=== PATIENT | female | born 1985 | race Two or more races ===

== ENCOUNTER → 2024-07-20 | Outpatient (CLI) | payer BC, SELFPAY ==
[2024-07-20 08:43] LABS: Basophils # (Auto) 0.1 Thou/mm3 (0.0-0.2); Basophils % (Auto) 1 % (0-2.5); Eosinophils # (Auto) 0.2 Thou/mm3 (0.0-0.5); Eosinophils % (Auto) 2 % (0-10); Hematocrit 42.2 % (36.0-46.0); Hemoglobin 14.1 g/dL (12.0-16.0); Immature Granulocytes % (Auto) 0 % (0-0); Immature Granulocytes Auto 0.03 Thou/mm3 (0.00-0.00); Lymphocytes # (Auto) 1.9 Thou/mm3 (1.0-4.8); Lymphocytes % (Auto) 27 % (10-50); Mean Corpuscular HGB Conc 33.4 g/dl (31.0-37.0); Mean Corpuscular Hemoglobin 29.4 pg (25.0-35.0); Mean Corpuscular Volume 88 fL (80-100); Monocytes # (Auto) 0.4 Thou/mm3 (0.0-0.8); Monocytes % (Auto) 6 % (0-12); Neutrophils # (Auto) 4.6 Thou/mm3 (1.8-7.7); Neutrophils % (Auto) 64 % (37-80); Nucleated Red Blood Cell % 0 /100 WBC (0); Platelet Count 408 Thou/mm3 (140-440); RDW Standard Deviation 40.5 fL (36.4-46.3); White Blood Count 7.2 Thou/mm3 (3.6-11.0)
[2024-07-20 08:53] LABS: Collection Type, Urine Clean Catch
[2024-07-20 09:01] LABS: Glucose Estimated Average 103 mg/dL (80-131); Hemoglobin A1C 5.2 % Hgb (4.8-6.0)
[2024-07-20 09:15] LABS: Vitamin B12 553 pg/mL (211-911); Vitamin D 25 Hydroxy Total 31.2 ng/mL (7.3-40.2)
[2024-07-20 09:20] LABS: Bilirubin,Urine Negative (Negative); Blood,Urine Trace (Negative); Clarity,Urine Clear (Clear/Hazy); Color,Urine Lt-Yellow (Lt Yel-Yel); Glucose, Urine Negative (Negative); Ketones,Urine Negative (Negative); Leukocyte Esterase,Urine Negative (Negative); Nitrite,Urine Negative (Negative); Protein,Urine Negative (Neg - Trace); RBC,Urine 3 /hpf (0-3); Specific Gravity,Urine 1.022 (1.001-1.035); Squamous Epithelial Cell,Urine 1 /hpf (0-5); Urobilinogen,Urine Negative mg/dL (0.0-1.0); WBC,Urine < 1 /hpf (0-5)
[2024-07-20 09:33] LABS: Alanine Aminotransferase 22 U/L (10-49); Albumin, Serum 4.6 gm/dL (3.5-5.0); Albumin/Globulin Ratio 1.5 (1.2-2.2); Alkaline Phosphatase 67 U/L (46-116); Anion Gap 7 (7-16); Aspartate Amino Transferase 15 U/L (0-34); BUN/Creatinine Ratio 14 Ratio (12-20); Bilirubin,Total 0.5 mg/dL (0.3-1.2); Blood Urea Nitrogen 10 mg/dL (9-23); Calcium 9.9 mg/dL (8.3-10.6); Calcium (Corrected) 9.9 mg/dL (8.5-10.1); Carbon Dioxide 27.4 mMol/L (20.0-31.0); Chloride 104 mMol/L (98-107); Cholesterol 228 mg/dL (132-200); Creatinine (Component) 0.7 mg/dL (0.6-1.3); Glucose 113 mg/dL (74-106); HDL Cholesterol 46 mg/dL (40-60); LDL Cholesterol,Calculated 161 mg/dL (0-130); Osmolality,Calculated 275 (275-295); Sodium 138 mMol/L (136-145); Thyroid Stimulating Hormone 1.01 uIU/mL (0.55-4.78); Total Protein 7.6 gm/dL (5.7-8.2); Triglycerides 107 mg/dL (30-150); Uric Acid 7.4 mg/dL (3.1-7.8); eGFR > 60 See Note
== END | disposition home or self-care (01) ==
LOC: COPL 07:43
PROVIDERS: PCP Internal Medicine; Referring Provider Internal Medicine; Visit Provider Internal Medicine
DX: Z00.00 Encounter for general adult medical examination without abnormal findings (principal); I10 Essential (primary) hypertension
CPT/HCPCS: 36415; 80053; 80061; 81001; 82306; 82607; 83036; 84443; 84550; 85025

== ENCOUNTER 2024-07-28 08:54 | Emergency (ER) | payer BC, SELFPAY ==
[2024-07-28 09:04] VITALS: BP 142/89; PULSE 84; RESP 18; TEMP 36.7; O2SAT 97; BMI 37.9
--- NOTE | 2024-07-28 09:05 | XR_ITS ---
Examination: Cervical spine 4 views Technique: AP, lateral, swimmer's lateral, AP odontoid 4 views Exam date and time: July 28, 2024 0923 hrs. Indications: Upper back and cervical spine pain 4 days Findings: Adequate alignment cervical vertebral bodies No cervical fracture Intact odontoid Impression: No cervical fracture or significant cervical disc narrowing If neck pain persists, consider MRI cervical spine without contrast follow-up
--- NOTE | 2024-07-28 09:05 | XR_ITS ---
Examination: Thoracic spine 3 views Technique one AP lateral coned lateral upper dorsal spine 3 views Exam date and time: July 28, 2024 0931 hrs. Indications: Upper and mid back pain beginning 4 days ago. Findings: Normal bone density. Satisfactory alignment thoracic vertebral bodies No thoracic fracture No thoracic disc narrowing Impression: No thoracic fracture or thoracic disc narrowing If back pain persists, consider MRI thoracic spine without contrast follow-up
[2024-07-28] MEDS: DIAZEPAM 5 MG TABLET PO (09:13)
[2024-07-28] MEDS: KETOROLAC INJ 30 MG/ML VIAL IM (09:14)
--- NOTE | 2024-07-28 09:59 | PD.EDADULT ---
ED General RME/HPI General Chief complaint: General Adult/Misc Complain Stated complaint: center shoulder blade pain-neck/face x4 days Time Seen by Provider: 07/28/24 08:57 Arrival date/time: 07/28/24 08:54 39-year-old female presents emergency department complaints of upper back pain and neck pain and suprascapular pain patient reports pain is worse with movement of her neck. Patient reports no fever nausea or vomiting no dizziness or weakness Limitations: no limitations Related Data Home Medications ?Medication ?Instructions ?Recorded ?Confirmed atenolol 50 mg tablet 50 mg PO QDAY 06/25/22 06/25/22 Previous Rx's ?Medication ?Instructions ?Recorded pantoprazole 40 mg tablet,delayed 40 mg PO QDAY #30 tabs 09/08/20 release (Protonix) cyclobenzaprine 10 mg tablet 10 mg PO TID PRN muscle spasm 10 07/28/24 days #30 tab-caps hydrocodone 5 mg-acetaminophen 325 1 tab PO BID PRN pain #6 tabs 07/28/24 mg tablet ibuprofen 800 mg tablet 800 mg PO TID PRN pain #30 tabs 07/28/24 Allergies Allergy/AdvReac Type Severity Reaction Status Date / Time cephalexin Allergy Severe Hives Verified 06/25/22 11:23 sumatriptan Allergy Severe PALPITATIONS, Verified 06/25/22 11:23 CXP, AND SWEATY nitrofurantoin Allergy Intermediate RASH Verified 06/25/22 11:23 HAPPENS DAYS AFTER NOT IMMEDIATELY latex Allergy Mild RASH Verified 06/25/22 11:23 Review of Systems Review of Systems Systems Reviewed: All systems reviewed, normal except as documented Constitutional Constitutional: Reports system reviewed and no additional complaints, except as documented, Denies fever(s) and Denies headache(s) Eyes Eyes: Reports system reviewed and no additional complaints, except as documented and Denies blurry vision ENT Ears, Nose, Mouth, and Throat: Reports system reviewed and no additional complaints, except as documented, Denies headache(s), Denies nasal congestion, Denies nasal discharge and Reports neck pain Cardiovascular Cardiovascular: Reports system reviewed and no additional complaints, except as documented, Denies chest pain and Denies dyspnea Respiratory Respiratory: Reports system reviewed and no additional complaints, except as documented, Denies chest congestion, Denies cough and Denies dyspnea Gastrointestinal Gastrointestinal: Reports system reviewed and no additional complaints, except as documented and Denies abdominal pain Musculoskeletal Musculoskeletal: Reports system reviewed and no additional complaints, except as documented, Denies deformity, Reports neck pain, Denies numbness, Reports stiffness and Denies tingling Integumentary/Breasts Skin/Breast: Reports system reviewed and no additional complaints, except as documented and Denies rash Neurologic Neurologic: Reports system reviewed and no additional complaints, except as documented, Reports as per HPI, Denies headache(s), Denies numbness and Denies tingling Past Medical History Past Medical History NEUROLOGIC: Positive Neurological Disorders and Migraine; Negative Seizures CARDIAC: Positive Cardiac Disorders, Cardiac Arrhythmia and Angina; Negative Congestive Heart Failure RESPIRATORY: Positive Bronchitis; Negative Chronic Obstructive Pulmonary Disease (COPD) or Asthma GASTROINTESTINAL: Positive Gastrointestinal Disorders, Gastroesophageal Reflux Disease and Obesity GENITOURINARY: Negative Genitourinary Disorders or Renal Disease REPRODUCTIVE: Positive Previous Pregnancies MUSCULOSKELETAL: Negative Musculoskeletal Disorders ENDOCRINE: Negative Endocrine Disorders, Diabetes Mellitus Type 1 or Diabetes Mellitus Type 2 HEMATOLOGIC: Negative Blood Disorders or Sickle Cell Disease OTHER HISTORY: Negative Hospitalization, Autoimmune Disease, Falls, Blood Transfusions, Anesthesia Reactions or Cancer Family History FAMILY HISTORY: Positive Family Cardiac Disorders; Negative Family Anesthesia Reaction Surgical History SURGICAL: Positive Tubal Ligation and Section Social History SMOKING STATUS: Never smoker SUBSTANCE USE: does not use ED Exam General Limitations: Present no limitations General appearance: Present alert and in no apparent distress Head Head exam: Present atraumatic, normocephalic and normal inspection Eye Eye exam: Present normal appearance, PERRL and EOMI; Absent conjunctival injection ENT ENT exam: Present normal exam, normal oropharynx and mucous membranes moist Neck Neck exam: Present normal inspection, full ROM and trachea midline Chest Chest inspection: Present normal inspection and symmetric chest wall rise Respiratory Respiratory exam: Present normal lung sounds bilaterally; Absent respiratory distress Cardiovascular Cardiovascular exam: Present regular rate, normal rhythm and normal heart sounds Abdominal Exam Abdominal exam: Present soft and normal bowel sounds Extremities Exam Extremities exam: Present normal inspection and full ROM Back Exam Back exam: Present normal inspection, full ROM, tenderness, muscle spasm and paraspinal tenderness Neurological Exam Neurological exam: Present alert, oriented X3, CN II-XII intact, normal gait and reflexes normal; Absent motor sensory deficit Psychiatric Psychiatric exam: Present normal affect and normal mood Skin Skin exam: Present warm, dry, intact and normal color Course Quality Measures none Orders Category Date Time Status XR cervical spine 2-3V Stat Exams 07/28/24 09:05 Completed XR thoracic spine 3V Stat Exams 07/28/24 09:05 Completed Diazepam [Valium] Med 07/28/24 09:05 Discontinued 5 mg PO X1 ONE Ketorolac Inj [Toradol Inj] Med 07/28/24 09:05 Discontinued 30 mg IM X1 ONE Vital Signs Vital signs: Vital Signs Temperature 98.1 F 07/28/24 09:04 Pulse Rate 84 07/28/24 09:04 Respiratory Rate 18 07/28/24 09:04 Blood Pressure 142/89 H 07/28/24 09:04 Pulse Oximetry (%) 97 07/28/24 09:04 Oxygen Delivery Method Room Air 07/28/24 09:04 O2 saturation 97% room air within normal limit [facility] Patient data External records reviewed:: [facility] previous records Clinical information provided by:: patient Social determinants that could affect healthcare access:: none Patient has the following chronic illnesses:: None How is presenting disease/condition affected by chronic disease/condition?: no chronic disease Evaluation data The following diagnostics were reviewed and interpreted by me:: radiology exam(s) Lab and/or radiology exams considered but not ordered:: Radiology obtained Interpretation Summary: Reviewed by me Medications Medications considered but not ordered:: Given Medication administrations:: Medication Administration History Discontinued Medications Diazepam (Diazepam 5 Mg Tablet) 5 mg PO X1 ONE Stop: 07/28/24 09:06 Last Admin: 07/28/24 09:13 Dose: 5 mg Documented By: AM Ketorolac Tromethamine (Ketorolac Inj 30 Mg/Ml Vial) 30 mg IM X1 ONE Stop: 07/28/24 09:06 Last Admin: 07/28/24 09:14 Dose: 30 mg Documented By: AM Given Consultations Consultation(s) initiated? (list below): No Diagnosis Differential Diagnosis ED Complaint MDM: Muscle spasm, muscle strain Most likely diagnosis given after review of the tests above:: Muscle strain Admission Indicated Admission indicated?: not indicated Explain why admission is indicated or not indicated:: No criteria Admission Request Was there a request for admission?: No Disposition Plan Disposition Plan: Discharge Discharge Attestation Discharge Attestation: The patient and all family members were given an opportunity to ask questions and understood the discharge instructions. Discharge instructions specifically effects, indications for sooner follow up or return to the emergency department, and the expected course of current diagnosis. Patient condition: Stable Medical Decision Making MDM Narrative MDM Narrative: 39-year-old female presents emergency department complaints of upper back pain and neck pain and suprascapular pain patient reports pain is worse with movement of her neck. Patient reports no fever nausea or vomiting no dizziness or weakness Clinically patient has muscle spasm/mostly muscle strain X-rays of the cervical spine and thoracic spine obtained no acute emergent findings noted Patient given pain medication Patient discharged home in no distress to follow-up with primary care doctor in the next 24 to 48 hours and for any worsening symptoms to return to the ER immediately Differential Diagnosis Differential Diagnosis: Muscle spasm, muscle strain Medical Records Medical records reviewed: Yes I reviewed the patient's medical records. Radiology Data Radiology results reviewed: Yes I reviewed the patient's radiology results. Discharge Plan Plan Patient Disposition: HOME (Self Care) Disposition Comment: Stable Prescriptions/Referrals Prescriptions/Med Rec: New cyclobenzaprine 10 mg tablet 10 mg PO TID PRN (Reason: muscle spasm) 10 Days Qty: 30 0RF ibuprofen 800 mg tablet 800 mg PO TID PRN (Reason: pain) Qty: 30 0RF hydrocodone-acetaminophen 5-325 mg tablet 1 tab PO BID MDD 10 PRN (Reason: pain) Qty: 6 0RF No Action pantoprazole [Protonix] 40 mg tablet,delayed release (DR/EC) 40 mg PO QDAY Qty: 30 0RF atenolol 50 mg tablet 50 mg PO QDAY Patient Comments: TAKE 1 TABLET BY MOUTH TWICE A DAY Referrals: Mariana To MD [Primary Care Provider] - 07/30/24 Problem List Clinical Impression: Pain, upper back, Muscle spasm Patient/Caregiver Discharge Instructions Education Materials: Back Safety: Bending Additional Instructions: Please follow up with your primary care doctor in the next 24-48hrs for any worsening symptoms return here immediately Print Language: Danish Stand Alone Forms: Rissa Award Info., Work/School Release, Patient Portal Info Letter Attestation Attestation The patient was seen by the midlevel practitioner. I, the co-signing physician, was present during the entire ER visit. While I did not physically examine the patient, I was available for consultation as needed.
== END 2024-07-28 10:18 | disposition home or self-care (01) ==
PROVIDERS: Emergency Provider Emergency Medicine; PCP Internal Medicine
DX: M54.6 Pain in thoracic spine (principal); M62.838 Other muscle spasm
CPT/HCPCS: 72040; 72050; 72072; 96372; 99283; J1885; A9270

== ENCOUNTER → 2024-09-27 | Outpatient (CLI) | payer BC, SELFPAY ==
--- NOTE | 2024-09-27 11:14 | XR_ITS ---
Examination: Breast ultrasound, unilateral, left complete Date and time of exam: September 27, 2024 1121 hours INDICATIONS: History left breast biopsy 12:00 nodule 06/07/2023, negative, the nodule measures 17 x 7 x 8 mm Technique: Real-time horton scale ultrasonographic imaging performed left breast including all 4 quadrants as well as nipple retroareolar and axillary region. Findings: 3:00 hyperechoic oval mass 6 x 6 mm 9:00 hyperechoic circumscribed mass 5 x 5 mm 11:00 oval mass with breast biopsy marker 17 x 8 x 9 mm IMPRESSION: BI-RADS Category 2: Benign findings
== END | disposition home or self-care (01) ==
LOC: CDIM 10:50
PROVIDERS: PCP Internal Medicine; Referring Provider Internal Medicine; Visit Provider Internal Medicine
DX: N63.25 Unspecified lump in the left breast, overlapping quadrants (principal); N63.12 Unspecified lump in the right breast, upper inner quadrant
CPT/HCPCS: 76641

== ENCOUNTER 2024-10-02 15:17 | Inpatient (IN) | payer BC, SELFPAY ==
--- NOTE | 2024-10-02 15:21 | EKG_ITS ---
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
--- NOTE | 2024-10-02 15:27 | PD.EDRME ---
Rapid Medical Screening Exam RME Arrival date/time: 10/02/24 15:17 39-year-old female presents to the emergency department today with complaint of chest pressure and pain patient reports a recent nuclear stress test which showed she had a blockage patient reports that she is supposed to have an angiogram this Chief Complaint: Chest Pain
[2024-10-02 15:29] VITALS: BP 134/75; PULSE 77; RESP 17; TEMP 37.3; O2SAT 97; BMI 40.4
--- NOTE | 2024-10-02 15:32 | XR_ITS ---
Examination: PA lateral chest 2 views TECHNIQUE: Upright PA lateral chest 2 views Exam date and time: October 02, 2024 1548 hours Comparison August 10, 2021 INDICATIONS: Chest pain chest tightness today FINDINGS: Normal heart size Lungs are clear. The osseous structures are intact IMPRESSION: No active disease
[2024-10-02 15:58] LABS: Basophils # (Auto) 0.1 Thou/mm3 (0.0-0.2); Basophils % (Auto) 1 % (0-2.5); Eosinophils # (Auto) 0.1 Thou/mm3 (0.0-0.5); Eosinophils % (Auto) 1 % (0-10); Hematocrit 38.5 % (36.0-46.0); Hemoglobin 13.2 g/dL (12.0-16.0); Immature Granulocytes % (Auto) 0 % (0-0); Immature Granulocytes Auto 0.03 Thou/mm3 (0.00-0.00); Lymphocytes # (Auto) 2.8 Thou/mm3 (1.0-4.8); Lymphocytes % (Auto) 25 % (10-50); Mean Corpuscular HGB Conc 34.3 g/dl (31.0-37.0); Mean Corpuscular Hemoglobin 29.1 pg (25.0-35.0); Mean Corpuscular Volume 85 fL (80-100); Monocytes # (Auto) 0.7 Thou/mm3 (0.0-0.8); Monocytes % (Auto) 6 % (0-12); Neutrophils # (Auto) 7.3 Thou/mm3 (1.8-7.7); Neutrophils % (Auto) 67 % (37-80); Nucleated Red Blood Cell % 0 /100 WBC (0); Platelet Count 367 Thou/mm3 (140-440); RDW Standard Deviation 38.1 fL (36.4-46.3); Red Blood Count 4.53 Miln/mm3 (4.00-5.20)
[2024-10-02 16:26] LABS: B-Type Natriuretic Peptide 36 pg/mL (0-100)
[2024-10-02 16:31] LABS: Alanine Aminotransferase 17 U/L (10-49); Albumin, Serum 4.5 gm/dL (3.5-5.0); Albumin/Globulin Ratio 1.4 (1.2-2.2); Alkaline Phosphatase 63 U/L (46-116); Anion Gap 8 (7-16); Aspartate Amino Transferase 12 U/L (0-34); BUN/Creatinine Ratio 14 Ratio (12-20); Bilirubin,Total 0.5 mg/dL (0.3-1.2); Blood Urea Nitrogen 10 mg/dL (9-23); Calcium 9.8 mg/dL (8.3-10.6); Calcium (Corrected) 9.8 mg/dL (8.5-10.1); Carbon Dioxide 27.5 mMol/L (20.0-31.0); Chloride 104 mMol/L (98-107); Creatinine (Component) 0.7 mg/dL (0.6-1.3); Globulin 3.3 gm/dL (2.3-3.5); Glucose 96 mg/dL (74-106); Osmolality,Calculated 276 (275-295); Potassium 3.9 mMol/L (3.4-5.1); Sodium 139 mMol/L (136-145); Total Protein 7.8 gm/dL (5.7-8.2); Troponin I < 0.002 ng/mL (0.0-0.045); eGFR > 60 See Note
--- NOTE | 2024-10-02 19:42 | PD.EDCHEST ---
ED Chest Pain RME/HPI General Chief Complaint: Chest Pain Stated Complaint: CHEST PAIN SINCE YESTRDAY, HAS BLOCKAGE Time Seen by Provider: 10/02/24 18:30 Arrival date/time: 10/02/24 15:17 Limitations: no limitations RME / HPI RME / HPI narrative: 10/02/24 15:17 39-year-old female presents to the emergency department today with complaint of chest pressure and pain patient reports a recent nuclear stress test which showed she had a blockage patient reports that she is supposed to have an angiogram this DR. HORAN MAIN ED EVALUATION: 39 year old female presents to the Emergency Department with complaint of chest pain that began yesterday when she woke up at 8 AM. She states the pain is constant and has not gone away. Pain is described as aching and rated moderate in severity. PMHx: Migraine, hypercholesterolemia, GERD. Tubal Ligation and a section. Social Hx: No tobacco, alcohol, or substance use. Related Data Home Medications ?Medication ?Instructions ?Recorded ?Confirmed atenolol 50 mg tablet 50 mg PO QDAY 06/25/22 06/25/22 Previous Rx's ?Medication ?Instructions ?Recorded pantoprazole 40 mg tablet,delayed 40 mg PO QDAY #30 tabs 09/08/20 release (Protonix) hydrocodone 5 mg-acetaminophen 325 1 tab PO BID PRN pain #6 tabs 07/28/24 mg tablet ibuprofen 800 mg tablet 800 mg PO TID PRN pain #30 tabs 07/28/24 Allergies Allergy/AdvReac Type Severity Reaction Status Date / Time cephalexin Allergy Severe Hives Verified 06/25/22 11:23 latex Allergy Severe RASH Verified 10/02/24 15:20 nitrofurantoin Allergy Severe RASH Verified 10/02/24 15:20 HAPPENS DAYS AFTER NOT IMMEDIATELY sumatriptan Allergy Severe PALPITATIONS, Verified 06/25/22 11:23 CXP, AND SWEATY Review of Systems Review of Systems Systems Reviewed: All systems reviewed, normal except as documented Narrative Review of Systems: GEN: No fever, no chills, no weight loss EYES: No discharge, no visual changes, no pain HEENT: No ear pain, no congestion, no sore throat PULM: No shortness of breath, no cough, no congestion CV: + chest pain, no dyspnea on exertion, no palpitations GI: No nausea, no vomiting, no diarrhea, no pain, no constipation : No frequency, no urgency and no dysuria MUSC/SKEL: No joint pain, no back pain SKIN: No rash PSYCH: No hallucinations, no depression HEME/LYMPH: No easy bleeding or bruising tendencies NEURO: No weakness, no headache Past Medical History Past Medical History NEUROLOGIC: Positive Neurological Disorders and Migraine CARDIAC: Positive Cardiac Arrhythmia and Hypercholesterolemia RESPIRATORY: Positive Bronchitis GASTROINTESTINAL: Positive Gastrointestinal Disorders and Gastroesophageal Reflux Disease REPRODUCTIVE: Positive Previous Pregnancies Family History FAMILY HISTORY: Positive Family Cardiac Disorders (Brother NM) Surgical History SURGICAL: Positive Tubal Ligation and Section Social History SMOKING STATUS: Never smoker SUBSTANCE USE: does not use ED Exam General Limitations: Present no limitations General appearance: Present alert and in no apparent distress Head Head exam: Present atraumatic, normocephalic and normal inspection Eye Eye exam: Present normal appearance, PERRL and EOMI ENT ENT exam: Present normal exam, normal oropharynx and mucous membranes moist Neck Neck exam: Present normal inspection, full ROM and trachea midline Chest Chest inspection: Present normal inspection and symmetric chest wall rise Respiratory Respiratory exam: Present normal lung sounds bilaterally Cardiovascular Cardiovascular exam: Present regular rate, normal rhythm and normal heart sounds Abdominal Exam Abdominal exam: Present soft and normal bowel sounds Extremities Exam Extremities exam: Present normal inspection and full ROM Back Exam Back exam: Present normal inspection and full ROM Neurological Exam Neurological exam: Present alert, oriented X3 and CN II-XII intact Psychiatric Psychiatric exam: Present normal affect and normal mood Skin Skin exam: Present warm, dry, intact and normal color Course Quality Measures none Orders Category Date Time Status EKG (ED ONLY) *Do not use* NOW Care 10/02/24 15:21 Completed EKG (ED Only) Stat Exams 10/02/24 15:21 Draft XR chest 2V Stat Exams 10/02/24 15:32 Completed BNP [B-Type Natriuretic Peptide] Stat Lab 10/02/24 15:44 Completed CBC Stat Lab 10/02/24 15:44 Completed Comprehensive Metabolic Panel Stat Lab 10/02/24 15:44 Completed D-Dimer Stat Lab 10/02/24 20:55 Received Troponin I Stat Lab 10/02/24 15:44 Completed Troponin I Stat Lab 10/02/24 20:55 Completed Aspirin Med 10/02/24 19:44 Discontinued 325 mg PO X1 ONE Nitroglycerin Oint 2% [Nitro-paste Oint 2%] Med 10/02/24 19:46 Discontinued 1 inch TOP X1 ONE Vital Signs Vital signs: Vital Signs Temperature 99.2 F 10/02/24 15:29 Pulse Rate 77 10/02/24 15:29 Respiratory Rate 17 10/02/24 15:29 Blood Pressure 134/75 H 10/02/24 15:29 Pulse Oximetry (%) 97 10/02/24 15:29 Oxygen Delivery Method Room Air 10/02/24 15:29 Procedures -ED EKG Interpretation #1: Date of EK10/02/24 Time of EK:28 Rate: 73 Interpretation: Interpreted by me Additional EKG comment: sinus rhythm, rate 73, QTc 382, T wave inversion in V3 which is new from 2020 Chest Pain MDM Narrative MDM Narrative:: I, Roxy Velarde am scribing for and in the presence of Dr. Horan. Patient data External records reviewed:: [facility] previous records (Reviewed last ED visit dated 07/28/24, discharged with the following: Muscle spasm.) Clinical information provided by:: patient Social determinants that could affect healthcare access:: none Patient has the following chronic illnesses:: Migraine, hypercholesterolemia, GERD. Tubal Ligation and a section. How is presenting disease/condition affected by chronic disease/condition?: exacerbated by Evaluation data The following diagnostics were reviewed and interpreted by me:: lab results, radiology exam(s) and EKG tracing(s) Lab and/or radiology exams considered but not ordered:: none Interpretation Summary: Exam: 2 views chest xray Indication: chest pain My interpretation: Lungs clear, no consolidation, normal cardiac silhouette, soft tissue normal Overall impression: no acute process. Full report below. RADIOLOGY Procedure(s): XR chest 2V Accession Number(s): [id number] cc: Lucille (RONA),Ayaan REA; Luis Kaiser MD~ Examination: PA lateral chest 2 views TECHNIQUE: Upright PA lateral chest 2 views Exam date and time: October 02, 2024 1548 hours Comparison August 10, 2021 INDICATIONS: Chest pain chest tightness today FINDINGS: Normal heart size Lungs are clear. The osseous structures are intact IMPRESSION: No active disease Dictated By: Luis Kaiser MD Medications / Prescriptions Medications or Prescriptions considered but not ordered:: none Medication administrations:: Medication Administration History Discontinued Medications Aspirin (Aspirin 325 Mg Tablet) 325 mg PO X1 ONE Stop: 10/02/24 19:45 Last Admin: 10/02/24 20:49 Dose: 325 mg Documented By: TC Nitroglycerin (Nitroglycerin Oint 2% 1 Inch Packet) 1 inch TOP X1 ONE Stop: 10/02/24 19:47 Last Admin: 10/02/24 20:48 Dose: 1 inch Documented By: TC see above Consultations Consultation(s) initiated? (list below): Yes Consultation #1 (Physician, Specialty, Details): Discussed test HPI, PMHx, lab, radiology results and/or management with hospitalist Dr. Goel. Will admit for further evaluation and management. Accepts patient for admission. Time: 21:30 Diagnosis Chest Pain Differential Diagnosis: atypical chest pain, st elevation myocardial infarction, costochondritis, chest pain and biliary colic Most likely diagnosis given after review of the tests above:: As noted below. Admission Indicated Admission indicated?: indicated Admission Request Was there a request for admission?: Yes Admission Attestation Admission request attestation: Discussed case with [] from Hospitalist service regarding admission. Discussed patients ED course, exam findings, labs, and radiology results. The Hospitalist [agrees,declines] to accept the patient for admission. Disposition Plan Disposition Plan: Admit Discharge Plan Plan Patient Disposition: HOME (Self Care) Patient condition on transfer: Stable Prescriptions/Referrals Prescriptions/Med Rec: No Action pantoprazole [Protonix] 40 mg tablet,delayed release (DR/EC) 40 mg PO QDAY Qty: 30 0RF atenolol 50 mg tablet 50 mg PO QDAY Patient Comments: TAKE 1 TABLET BY MOUTH TWICE A DAY ibuprofen 800 mg tablet 800 mg PO TID PRN (Reason: pain) Qty: 30 0RF hydrocodone-acetaminophen 5-325 mg tablet 1 tab PO BID MDD 10 PRN (Reason: pain) Qty: 6 0RF Referrals: Mariana To MD [Primary Care Provider] - In 1 week Problem List Clinical Impression: Chest pain, Unstable angina Patient/Caregiver Discharge Instructions Print Language: Tajik Stand Alone Forms: Rissa Award Info., Patient Portal Info Letter
[2024-10-02 20:48] VITALS: BP 171/106; PULSE 73
[2024-10-02] MEDS: NITROGLYCERIN OINT 2% 1 INCH PACKET TOP (20:48)
[2024-10-02] MEDS: Aspirin 325 MG TABLET PO (20:49)
[2024-10-02 20:51] VITALS: BP 171/106; PULSE 74; RESP 15; O2SAT 99
[2024-10-02 21:22] LABS: Troponin I < 0.002 ng/mL (0.0-0.045)
[2024-10-02 21:33] LABS: D-Dimer < 250 ng/mL (<600)
[2024-10-02 22:28] LABS: Basophils # (Auto) 0.1 Thou/mm3 (0.0-0.2); Basophils % (Auto) 0 % (0-2.5); Eosinophils # (Auto) 0.1 Thou/mm3 (0.0-0.5); Eosinophils % (Auto) 1 % (0-10); Hematocrit 39.4 % (36.0-46.0); Hemoglobin 13.7 g/dL (12.0-16.0); Immature Granulocytes % (Auto) 0 % (0-0); Immature Granulocytes Auto 0.04 Thou/mm3 (0.00-0.00); Lymphocytes # (Auto) 3.5 Thou/mm3 (1.0-4.8); Lymphocytes % (Auto) 25 % (10-50); Mean Corpuscular HGB Conc 34.8 g/dl (31.0-37.0); Mean Corpuscular Hemoglobin 29.5 pg (25.0-35.0); Mean Corpuscular Volume 85 fL (80-100); Monocytes # (Auto) 0.7 Thou/mm3 (0.0-0.8); Monocytes % (Auto) 5 % (0-12); Neutrophils # (Auto) 9.4 Thou/mm3 (1.8-7.7); Neutrophils % (Auto) 68 % (37-80); Nucleated Red Blood Cell % 0 /100 WBC (0); Platelet Count 390 Thou/mm3 (140-440); RDW Standard Deviation 38.1 fL (36.4-46.3); Red Blood Count 4.65 Miln/mm3 (4.00-5.20); White Blood Count 13.8 Thou/mm3 (3.6-11.0)
[2024-10-02 22:36] LABS: INR 1.1 (0.9-1.3); Partial Thromboplastin Time 30.4 Seconds (22.0-36.0); Prothrombin Time 11.9 Seconds (9.0-12.2)
[2024-10-02 23:05] VITALS: BP 126/76; PULSE 70; RESP 15; O2SAT 97
[2024-10-03] VITALS (12 sets, daily range): BP systolic 99–122; BP diastolic 58–67; PULSE 18–91; RESP 13–99; TEMP 36.3–37.1; O2SAT 87–98; BMI 39.8
[2024-10-03] MEDS: HEPARIN SOD INJ 5000 UNIT/ML VIAL 2900 UNIT IV (01:50)
[2024-10-03] MEDS: Heparin/D5w 25K 250 ML Ivpb 25,000 UNIT/250 ML BAG 9.998 UNIT IV (01:53)
[2024-10-03 07:38] LABS: Troponin I < 0.002 ng/mL (0.0-0.045)
[2024-10-03] MEDS: Lisinopril 2.5 MG TABLET 10 MG PO (08:24)
[2024-10-03] MEDS: METOPROLOL SUCCINATE XL 25 MG TABCR 50 MG PO (08:24)
--- NOTE | 2024-10-03 08:37 | EKG_ITS ---
[facility] Test Date: 2024-10-03 Pat Name: KELSI ROGERS [facility] Healthcare Insurance Sales Agent: JOSE LUIS : 1985 Requested By: Serafin Leonard Order Number: [id number] Reading MD: Serafin Leonard Measurements Intervals [place] Rate: 81 P: 48 [place]: 175 QRS: 31 QRSD: 101 T: 34 QT: 364 QTc: 425 Interpretive Statements SINUS RHYTHM Compared to ECG 10/02/2024 15:28:45 No significant changes /store/S0/[id number]
--- NOTE | 2024-10-03 08:45 | PD.RESHP ---
Documentation for date of: 10/03/24 HPI History of Present Illness Chief complaint: Chest pain History of present illness: HPI: 39-year-old female patient with past medical history of hypertension, hyperlipidemia, questionable coronary artery disease, presented to the ED due to chest pain that started 12 hours before presentation. Patient reported that the pain was 9 out of 10 on presentation it was centrally located and radiated to the left shoulder. She mentions that the pain is pressure-like pain it has no relation to activity however she will notice that it increased with stress. She also reported yesterday she noticed whenever she take a deep breath the pain become worse. She mentions also that she started to have episodes of palpitation and during these palpitations when she was feeling sharp pain that last for few seconds and goes away. Patient denied any history of loss of consciousness, or presyncope. Denied any lower extremity swelling or orthopnea or paroxysmal nocturnal dyspnea. Patient reported that she had been having recurrent episodes of chest pain for the past 3 years. Reported that she has been following up with Dr. Aldrich since then. In April 2024 nuclear study test was done and it was negative for any blockage however in August 2024 another stress study was done and it showed that the patient has a blockage. Patient was started on aspirin [address] Aldrich and scheduled for angiogram on , 04 October 2024 however patient could not tolerate the pain for that reason patient presented to the ED specially because she said that she has family history of massive heart attack in her brother at the age of 48 that led to his . Home medications: Atenolol, atorvastatin, aspirin ED course: On presentation patient was vitally stable, EKG was negative for any ischemic changes, troponin was negative, BNP negative chest x-ray was also negative for any mediastinal dilatation or pleural effusion. Hemoglobin is 13.7, WBC 10, basal metabolic panel within normal limits. PMH: Hypertension, hyperlipidemia, coronary artery disease PSX: , tubal ligation PFX: Massive heart attack and brother at the age of 48 socially Social hx: Alcohol: Socially Tobacco: Denied Illicit drugs: Denied Allergies: Sumatriptan, cephalexin, latex, nitrofurantoin Review of Systems Review of Systems Narrative Review of Systems: CONSTITUTIONAL: Patient denies any fever, chills. HEENT: Denies any visual disturbances or hearing problems. CARDIOVASCULAR: Patient complaining of chest pain, shortness of breath-better this morning. No swelling in the lower extremities. PULMONARY: Shortness of breath better this morning GASTROINTESTINAL: Patient denies any abdominal pain, constipation, nausea, vomiting, diarrhea. GENITOURINARY: Patient denies any urinary symptoms of burning or frequency or hematuria, denies any form in the urine. SKIN: Denies any rash. MUSCULOSKELETAL: Denies any muscular skeletal problems of joint pains. NEUROLOGICAL: Denies any neurological problems of strokes, seizures or confusion. Denies any memory problems. PSYCHIATRIC: Denies any depression or anxiety. LYMPHATICS : No lymphadenopathy Past Medical History Past Medical History NEUROLOGIC: Positive Neurological Disorders and Migraine; Negative Seizures CARDIAC: Positive Cardiac Disorders, Cardiac Arrhythmia (Tachycardia), Angina and Hypercholesterolemia; Negative Congestive Heart Failure RESPIRATORY: Positive Bronchitis; Negative Chronic Obstructive Pulmonary Disease (COPD) or Asthma GASTROINTESTINAL: Positive Gastrointestinal Disorders, Gastroesophageal Reflux Disease and Obesity GENITOURINARY: Negative Genitourinary Disorders or Renal Disease REPRODUCTIVE: Positive Previous Pregnancies MUSCULOSKELETAL: Negative Musculoskeletal Disorders ENDOCRINE: Negative Endocrine Disorders, Diabetes Mellitus Type 1 or Diabetes Mellitus Type 2 HEMATOLOGIC: Negative Blood Disorders or Sickle Cell Disease OTHER HISTORY: Negative Hospitalization, Autoimmune Disease, Falls, Blood Transfusions, Anesthesia Reactions or Cancer Family History FAMILY HISTORY: Positive Family Cardiac Disorders; Negative Family Anesthesia Reaction Surgical History SURGICAL: Positive Tubal Ligation and Section Social History SMOKING STATUS: Former smoker SECOND HAND EXPOSURE: No SUBSTANCE USE: does not use Exam Vital Signs Temp Pulse Resp BP Pulse Ox O2 Del Method 98.0 F 76 18 112/66 97 Room Air 10/03/24 04:00 10/03/24 08:24 10/03/24 04:00 10/03/24 08:24 10/03/24 04:00 10/03/24 04:00 Narrative Exam GEN: AOx3, obese able to speak full sentences HEENT: NC/AC, oral mucosa moist, neck supple CVS: RRR, S1-S2 present, no murmurs appreciated RESP: CTAB GI: soft,non distended, non tender, NBS MSK: able to move all 4 limbs, no lower extremity edema SKIN: warm and dry SOFTWARE VALIDATION ENGINEER: CN II-XII and Sensation grossly intact. Results: Labs 10/02/24 20:55 10/02/24 15:44 Labs: Short CBC 10/02/24 10/02/24 Range/Units 15:44 20:55 WBC 11.0 13.8 H (3.6-11.0) Thou/mm3 Hgb 13.2 13.7 (12.0-16.0) g/dL Hct 38.5 39.4 (36.0-46.0) % Plt Count 367 390 (140-440) Thou/mm3 BMP 10/02/24 15:44 Sodium 139 Potassium 3.9 Chloride 104 Carbon Dioxide 27.5 BUN 10 Creatinine 0.7 Glucose 96 Calcium 9.8 Cardiac Enzymes 10/02/24 10/02/24 10/03/24 Range/Units 15:44 20:55 06:46 Troponin I < 0.002 < 0.002 < 0.002 (0.0-0.045) ng/mL Liver Function 10/02/24 Range/Units 15:44 Total Bilirubin 0.5 (0.3-1.2) mg/dL AST 12 (0-34) U/L ALT 17 (10-49) U/L Alkaline Phosphatase 63 (46-116) U/L Albumin 4.5 (3.5-5.0) gm/dL Quality Measures Quality Measures none Medications Home Medications and Allergies Home Medications ?Medication ?Instructions ?Recorded ?Confirmed ?Type atenolol 50 mg tablet 50 mg PO QDAY 06/25/22 10/02/24 History aspirin 81 mg capsule 81 mg PO QDAY 10/02/24 10/02/24 History atorvastatin 20 mg tablet 20 mg PO QPM 10/02/24 10/02/24 History Allergies Allergy/AdvReac Type Severity Reaction Status Date / Time cephalexin Allergy Severe Hives Verified 06/25/22 11:23 latex Allergy Severe RASH Verified 10/02/24 15:20 nitrofurantoin Allergy Severe RASH Verified 10/02/24 15:20 HAPPENS DAYS AFTER NOT IMMEDIATELY sumatriptan Allergy Severe PALPITATIONS, Verified 06/25/22 11:23 CXP, AND SWEATY Visit Medications Acetaminophen (Acetaminophen 325 Mg Tablet) 650 mg PO Q6H PRN PRN Reason: Fever >101.5 or mild pain 1-3 Stop: 11/02/24 08:36 Aspirin (Aspirin Ec 81 Mg Tabec) 81 mg PO QDAY [facility] Stop: 11/02/24 08:59 Atorvastatin Calcium (Atorvastatin Calcium 20 Mg Tablet) 80 mg PO QPM [facility] Stop: 11/02/24 20:59 Heparin Sodium/Dextrose (Heparin In D5w Ivpb) 25,000 unit in 250 mls @ 9.998 mls/hr IV .Q24H [facility]; Protocol Stop: 10/17/24 00:25 Last Titration: 10/03/24 02:00 Dose: 10.3 units/kg/hr, 9.998 mls/hr Lisinopril (Lisinopril 2.5 Mg Tablet) 10 mg PO DAILY [facility] Stop: 11/02/24 08:59 Last Admin: 10/03/24 08:24 Dose: 10 mg Metoprolol Succinate (Metoprolol Succinate Xl 25 Mg Tabcr) 50 mg PO DAILY [facility] Stop: 11/02/24 08:59 Last Admin: 10/03/24 08:24 Dose: 50 mg Morphine Sulfate (Morphine Sulf Inj 10 Mg/Ml Vial) 2 mg IVP Q4HR PRN PRN Reason: Pain Scale 7-10- INFORM MD Stop: 10/08/24 08:36 Nitroglycerin (Nitroglycerin 0.4 Mg Subl Btl #25) 0.4 mg SL Q5MIN PRN PRN Reason: Chest Pain if SBP>120, call Ondansetron HCl (Ondansetron Inj 2 Mg/Ml Inj 2 Ml) 4 mg IV Q6H PRN; Protocol PRN Reason: NAUSEA OR VOMITING Stop: 11/02/24 08:36 Pantoprazole Sodium (Pantoprazole Inj 40 Mg Vial) 40 mg IVP QDAY [facility] Stop: 11/02/24 08:59 Sennosides (Senna Tablet) 1 tab PO QDAY PRN; Protocol PRN Reason: constipation Stop: 11/02/24 08:36 Discontinued Medications Aspirin (Aspirin 325 Mg Tablet) 325 mg PO X1 ONE Stop: 10/02/24 19:45 Last Admin: 10/02/24 20:49 Dose: 325 mg Heparin Sodium (Porcine) (Heparin Sod Inj 5000 Unit/Ml Vial) 2,900 unit 30 unit/kg (2900 unit) IV X1 ONE; Protocol Stop: 10/02/24 22:02 Last Admin: 10/03/24 01:50 Dose: 2,900 unit Nitroglycerin (Nitroglycerin Oint 2% 1 Inch Packet) 1 inch TOP X1 ONE Stop: 10/02/24 19:47 Last Admin: 10/02/24 20:48 Dose: 1 inch Assessment & Plan Plan Summary:39-year-old female patient with past medical history of hypertension, hyperlipidemia, questionable coronary artery disease, presented to the ED due to chest pain that started 12 hours before presentation. Patient reported that the pain was 9 out of 10 on presentation it was centrally located and radiated to the left shoulder. Patient was admitted to rule out coronary artery disease. Assessment and plan #Acute coronary syndrome most likely secondary to unstable angina versus Prinzmetal angina #Prinzmetal angina rule out #Unstable angina rule out Patient reported that the pain was 9 out of 10 on presentation it was centrally located and radiated to the left shoulder. She mentions that the pain is pressure-like pain it has no relation to activity however she will notice that it increased with stress. She also reported yesterday she noticed whenever she take a deep breath the pain become worse On presentation patient was vitally stable, EKG was negative for any ischemic changes, troponin was negative, BNP negative chest x-ray was also negative for any mediastinal dilatation or pleural effusion. Plan ? Cardiology consultation was placed, pending recommendations possible angiogram tomorrow ? Patient reported that she has an echo and stress echo was done at Dr. Aldrich's office-abnormal stress test and was scheduled for cardiac cath tomorrow. ? Will stop trending troponin ? Telemonitoring ? Continue the patient on aspirin 81 mg p.o. daily ? Continue patient on heparin drip ACS protocol ? Increase atorvastatin home dose to 80 mg/day ? Sublingual nitroglycerin 0.4 milligrams every 5 minutes x 3 and inform MD on-call ? Switch her medication atenolol to metoprolol 50 mg daily ? TSH, urine drug screen #History of hypertension Plan ? Switch the patient home medication atenolol to lisinopril ? Switch her home medication atenolol to metoprolol 50 mg p.o. daily #History of hyperlipidemia Latest lipid panel was in July last year showed cholesterol level of 218, LDL of 163, HDL of 46 Plan ? Increase the dose of atorvastatin to 80 mg daily ?Lipid panel today #Obesity Plan ? Weight loss counseling was conducted Hospital Maintenance: FEN: Cardiac diet DVT ppx: Heparin GI ppx: Protonix IV lines: PIV [place]: None Code status: Full code Dispo: Med/tele - Patient's plan and care discussed with my attending, Dr. Zuleika Leonard MD Internal Medicine PGY-2 Attending Provider Attestation/Addendum Patient seen and examined with resident physician Dr. Betancourt. Note reviewed, agree with findings and recommendations. Patient with unstable angina and recent abnormal stress test. Cardiology consultation requested. Aspirin, heparin drip ordered. Will need cardiac catheterization. Will schedule tomorrow in the outpatient setting.
--- NOTE | 2024-10-03 09:00 | CHAP ---
Visited briefly with patient and gave encouragement and prayer.
[2024-10-03 09:26] LABS: D-Dimer < 250 ng/mL (<600)
--- NOTE | 2024-10-03 09:33 | PC.SS ---
Initial assessment: This is 39 year old female admitted for chest pain and unstable angina. Patient appeared alert and oriented. Patient lives at home with spouse. Confirmed home address. Patient identifies her spouse, Donal Evans as her emergency contact. Patient informs she is independent with ambulation, ADL's. No DME used at home. Patient's PCP is Dr. To. Patient's pharmacy is [facility]. Patient to return home at time of discharge. No needs identified at this time. D/c plan: Home Next of kin: Spouse, Donal Evans
[2024-10-03] MEDS: ASPIRIN EC 81 MG TABEC PO (09:39)
[2024-10-03] MEDS: PANTOPRAZOLE INJ 40 MG VIAL IVP (09:40)
[2024-10-03 10:20] LABS: Cardiac Risk Estimate 3.1 RATIO (3.7-5.6); Cholesterol 132 mg/dL (132-200); HDL Cholesterol 43 mg/dL (40-60); LDL Cholesterol,Calculated 40 mg/dL (0-130); Triglycerides 246 mg/dL (30-150)
[2024-10-03] MEDS: NITROGLYCERIN 0.4 MG SUBL BTL #25 SL (10:56)
[2024-10-03 11:39] LABS: INR 1.1 (0.9-1.3); Prothrombin Time 11.9 Seconds (9.0-12.2)
[2024-10-03 11:51] LABS: Amphetamine/Methamp Scrn,U Negative (Negative); Barbiturate Screen,Urine Negative (Negative); Benzodiazepines Screen,Urine Negative (Negative); Benzoylecgonine Screen, Ur Negative (Negative); Fentanyl Screen,Urine Negative (Negative); Opiate Screen,Urine Negative (Negative); THC Screen,Urine Negative (Negative)
[2024-10-03] MEDS: HEPARIN SOD INJ 5000 UNIT/ML VIAL 2000 UNIT IV ×2 (12:01→19:39)
[2024-10-03 14:42] LABS: Troponin I < 0.002 ng/mL (0.0-0.045)
--- NOTE | 2024-10-03 14:53 | ESCONSULT_ITS ---
<Statement entered by Sebastian Aldrich MD - 10/04/24 13:09> I personally examined the patient who was supposed to have cardiac evaluation tomorrow came to the hospital severe chest pain acute coronary syndrome requiring nitroglycerin and heparin appears to be doing better but still having chest pain hence we will schedule patient for coronary angiogram cardiac evaluation agree with the treatment plan recommendation as documented by Dr Merrill PGY 2 will arrange for angiogram tomorrow HPI Data of Consult Requesting Physician: Mariana To MD Admitting Provider: Mariana To MD Attending Provider: Mariana To MD Primary Care Provider: Mariana To MD Consult Narrative Reason for consult: Chest pain History of present illness: Patient is a 39-year-old female with past medical history significant for hypertension, hyperlipidemia, strong family history of cardiovascular disease who presented to the ED with severe chest pain since last night. Patient states that the pain initially was 9 out of 10 centrally and radiated to her left shoulder around 10AM yesterday morning. Patient's states her pain improved after taking Nitroglycerin, however pain was recurrent and felt immense pressure, unlike her previous episodes before. Symptoms worsen on deep inspiration. Other associated symptoms include episodes of palpitations accompanied with sharp pain but would last for a few seconds before dissipating. Patient denies any lightheadedness, dizziness, loss of consciousness, sweatiness, bilateral leg swelling, orthopnea or PND. Cardiology was consulted for further management. Patient was scheduled for an outpatient angiogram of her left heart tomorrow afternoon as there was some blockage noted on a stress test done in August 2024. Past surgical history: tubal ligation Family history: Brother had a heart attack at age 48, and passed Social history: Denies any tobacco or illicit drug use. Patient does drink alcohol socially. Meds: Patient takes home aspirin 81 mg daily, atorvastatin 20 mg at bedtime, atenolol 50 mg daily. cc:: cc: Mariana To MD Review of Systems Review of Systems Systems Reviewed: All systems reviewed, normal except as documented Exam Vital Signs Temp Pulse Resp BP Pulse Ox O2 Del Method 98.7 F 78 18 115/61 98 Room Air 10/03/24 11:52 10/03/24 12:00 10/03/24 11:52 10/03/24 11:52 10/03/24 11:52 10/03/24 11:52 Narrative Exam General Appearance: Pt in mild acute distress laying in bed. Appears obese, well-developed. HEENT: NC/AT, no scleral icterus, no conjunctival pallor, MMM Lungs: CTAB, no wheezes or crackles appreciated CVS: RRR, S1/S2 heard, no murmurs or rubs appreciated ABD: Soft, non-tender, non-distended, BS + in all 4 quadrants EXT: no deformity/edema/lesions/cyanosis/clubbing, radial pulses 2+ BL, DP pulses 2 + BL SKIN: Skin exam normal without any rashes. Neuro: A&O x 3. No gross neurological deficits. Motor and sensory grossly intact in B/L UL and LL. Psych: Appropriate mood and affect Results Labs 10/02/24 20:55 10/02/24 15:44 Labs: Short CBC 10/02/24 10/02/24 Range/Units 15:44 20:55 WBC 11.0 13.8 H (3.6-11.0) Thou/mm3 Hgb 13.2 13.7 (12.0-16.0) g/dL Hct 38.5 39.4 (36.0-46.0) % Plt Count 367 390 (140-440) Thou/mm3 BMP 10/02/24 15:44 Sodium 139 Potassium 3.9 Chloride 104 Carbon Dioxide 27.5 BUN 10 Creatinine 0.7 Glucose 96 Calcium 9.8 Cardiac Enzymes 10/02/24 10/02/24 10/03/24 Range/Units 15:44 20:55 06:46 Troponin I < 0.002 < 0.002 < 0.002 (0.0-0.045) ng/mL 10/03/24 Range/Units 13:57 Troponin I < 0.002 (0.0-0.045) ng/mL Liver Function 10/02/24 Range/Units 15:44 Total Bilirubin 0.5 (0.3-1.2) mg/dL AST 12 (0-34) U/L ALT 17 (10-49) U/L Alkaline Phosphatase 63 (46-116) U/L Albumin 4.5 (3.5-5.0) gm/dL Quality Measures Quality Measures none Medications Home Medications and Allergies Home Medications ?Medication ?Instructions ?Recorded ?Confirmed ?Type atenolol 50 mg tablet 50 mg PO QDAY 06/25/22 10/02/24 History aspirin 81 mg capsule 81 mg PO QDAY 10/02/24 10/02/24 History atorvastatin 20 mg tablet 20 mg PO QPM 10/02/24 10/02/24 History Allergies Allergy/AdvReac Type Severity Reaction Status Date / Time cephalexin Allergy Severe Hives Verified 06/25/22 11:23 latex Allergy Severe RASH Verified 10/02/24 15:20 nitrofurantoin Allergy Severe RASH Verified 10/02/24 15:20 HAPPENS DAYS AFTER NOT IMMEDIATELY sumatriptan Allergy Severe PALPITATIONS, Verified 06/25/22 11:23 CXP, AND SWEATY Visit Medications Acetaminophen (Acetaminophen 325 Mg Tablet) 650 mg PO Q6H PRN PRN Reason: Fever >101.5 or mild pain 1-3 Stop: 11/02/24 08:36 Aspirin (Aspirin Ec 81 Mg Tabec) 81 mg PO QDAY [facility] Stop: 11/02/24 08:59 Last Admin: 10/03/24 09:39 Dose: 81 mg Atorvastatin Calcium (Atorvastatin Calcium 20 Mg Tablet) 80 mg PO QPM [facility] Stop: 11/02/24 20:59 Heparin Sodium/Dextrose (Heparin In D5w Ivpb) 25,000 unit in 250 mls @ 9.998 mls/hr IV .Q24H [facility]; Protocol Stop: 10/17/24 00:25 Last Titration: 10/03/24 12:00 Dose: 12.3 units/kg/hr, 11.939 mls/hr Lisinopril (Lisinopril 2.5 Mg Tablet) 10 mg PO DAILY [facility] Stop: 11/02/24 08:59 Last Admin: 10/03/24 08:24 Dose: 10 mg Metoprolol Succinate (Metoprolol Succinate Xl 25 Mg Tabcr) 50 mg PO DAILY [facility] Stop: 11/02/24 08:59 Last Admin: 10/03/24 08:24 Dose: 50 mg Morphine Sulfate (Morphine Sulf Inj 10 Mg/Ml Vial) 2 mg IVP Q4HR PRN PRN Reason: Pain Scale 7-10- INFORM Stop: 10/08/24 08:36 Nitroglycerin (Nitroglycerin 0.4 Mg Subl Btl #25) 0.4 mg SL Q5MIN PRN PRN Reason: Chest Pain-INFORM Last Admin: 10/03/24 10:56 Dose: 0.4 mg Ondansetron HCl (Ondansetron Inj 2 Mg/Ml Inj 2 Ml) 4 mg IV Q6H PRN; Protocol PRN Reason: NAUSEA OR VOMITING Stop: 11/02/24 08:36 Pantoprazole Sodium (Pantoprazole Inj 40 Mg Vial) 40 mg IVP QDAY [facility] Stop: 11/02/24 08:59 Last Admin: 10/03/24 09:40 Dose: 40 mg Sennosides (Senna Tablet) 1 tab PO QDAY PRN; Protocol PRN Reason: constipation Stop: 11/02/24 08:36 Discontinued Medications Aspirin (Aspirin 325 Mg Tablet) 325 mg PO X1 ONE Stop: 10/02/24 19:45 Last Admin: 10/02/24 20:49 Dose: 325 mg Heparin Sodium (Porcine) (Heparin Sod Inj 5000 Unit/Ml Vial) 2,900 unit 30 unit/kg (2900 unit) IV X1 [facility]; Protocol Stop: 10/02/24 22:02 Last Admin: 10/03/24 01:50 Dose: 2,900 unit Heparin Sodium (Porcine) (Heparin Sod Inj 5000 Unit/Ml Vial) 2,000 unit IV X1 ONE Stop: 10/03/24 11:54 Last Admin: 10/03/24 12:01 Dose: 2,000 unit Nitroglycerin (Nitroglycerin Oint 2% 1 Inch Packet) 1 inch TOP X1 ONE Stop: 10/02/24 19:47 Last Admin: 10/02/24 20:48 Dose: 1 inch Nitroglycerin (Nitroglycerin 0.4 Mg Subl Btl #25) 0.4 mg SL Q5MIN PRN PRN Reason: Chest Pain if SBP>120, call Stop: 11/02/24 08:42 Assessment & Plan Plan Patient is a 39-year-old female with past medical history significant for hypertension, hyperlipidemia, strong family history of cardiovascular disease who presented to the ED with severe chest pain since last night. Cardiology was consulted for further management. #? CAD #Hypertension #Hyperlipidemia Patient has a strong family history for heart disease in her family. Patient has been on atorvastatin 20 mg at bedtime. Patient's current lipid panel shows triglycerides elevated and LDL at 40. Patient also has been on aspirin 81 mg daily. CAD most likely in the setting of unstable angina vs prinzmental angina. EKG suggests no ST-T changes. Troponin x 3 negative. Patient received 325mg QD x 1 in the ED. -Continue with home medications: Aspirin 81mg -Continue with Metoprolol Succinate 50mg QD and Atorvastatin 80mg HS -Continue with Heparin gtt -Continue with Nitroglycerin 0.4mg SL as needed for chest pain -Continue with monitor on tele for signs and symptoms -Continue with Lisinopril 10mg QD -Will plan for C tomorrow mid-morning -NPO after midnight Rest of problems as per primary team Patient's plan and care discussed with my attending, Dr. Valdemar Merrill MD PGY-2
[2024-10-03 18:55] LABS: Partial Thromboplastin Time 49.5 Seconds (22.0-36.0)
[2024-10-03] MEDS: ATORVASTATIN CALCIUM 20 MG TABLET 80 MG PO (20:14)
[2024-10-03] MEDS: Heparin/D5w 25K 250 ML Ivpb 25,000 UNIT/250 ML BAG 14 UNIT IV (23:45)
[2024-10-04] VITALS (17 sets, daily range): BP systolic 93–123; BP diastolic 49–84; PULSE 72–90; RESP 12–97; TEMP 36.1–36.6; O2SAT 96–99
[2024-10-04 02:28] LABS: Basophils % (Auto) 0 % (0-2.5); Eosinophils # (Auto) 0.2 Thou/mm3 (0.0-0.5); Eosinophils % (Auto) 1 % (0-10); Hematocrit 37.2 % (36.0-46.0); Hemoglobin 12.9 g/dL (12.0-16.0); Immature Granulocytes % (Auto) 0 % (0-0); Immature Granulocytes Auto 0.04 Thou/mm3 (0.00-0.00); Lymphocytes # (Auto) 3.2 Thou/mm3 (1.0-4.8); Lymphocytes % (Auto) 26 % (10-50); Mean Corpuscular HGB Conc 34.7 g/dl (31.0-37.0); Mean Corpuscular Hemoglobin 29.3 pg (25.0-35.0); Mean Corpuscular Volume 84 fL (80-100); Monocytes # (Auto) 0.6 Thou/mm3 (0.0-0.8); Monocytes % (Auto) 5 % (0-12); Neutrophils # (Auto) 8.1 Thou/mm3 (1.8-7.7); Neutrophils % (Auto) 67 % (37-80); Nucleated Red Blood Cell % 0 /100 WBC (0); Platelet Count 349 Thou/mm3 (140-440); RDW Standard Deviation 37.7 fL (36.4-46.3); Red Blood Count 4.41 Miln/mm3 (4.00-5.20); White Blood Count 12.2 Thou/mm3 (3.6-11.0)
[2024-10-04 02:51] LABS: INR 1.1 (0.9-1.3); Partial Thromboplastin Time 65.3 Seconds (22.0-36.0); Prothrombin Time 12.1 Seconds (9.0-12.2)
[2024-10-04 03:26] LABS: Alanine Aminotransferase 11 U/L (10-49); Albumin, Serum 4.4 gm/dL (3.5-5.0); Albumin/Globulin Ratio 1.5 (1.2-2.2); Alkaline Phosphatase 60 U/L (46-116); Anion Gap 9 (7-16); Aspartate Amino Transferase 10 U/L (0-34); BUN/Creatinine Ratio 17 Ratio (12-20); Bilirubin,Total 0.6 mg/dL (0.3-1.2); Blood Urea Nitrogen 10 mg/dL (9-23); Calcium 9.4 mg/dL (8.3-10.6); Calcium (Corrected) 9.4 mg/dL (8.5-10.1); Carbon Dioxide 25.4 mMol/L (20.0-31.0); Chloride 102 mMol/L (98-107); Creatinine (Component) 0.6 mg/dL (0.6-1.3); Estimated Creatinine Clearance 133.1 mL/min (>60); Glucose 107 mg/dL (74-106); Magnesium 1.9 mg/dL (1.6-2.6); Osmolality,Calculated 270 (275-295); Phosphorous 4.1 mg/dL (2.4-5.1); Potassium 3.4 mMol/L (3.4-5.1); Sodium 136 mMol/L (136-145); Total Protein 7.4 gm/dL (5.7-8.2); eGFR > 60 See Note
[2024-10-04 09:05] LABS: Partial Thromboplastin Time 58.4 Seconds (22.0-36.0)
[2024-10-04] MEDS: PANTOPRAZOLE INJ 40 MG VIAL IVP (09:20)
[2024-10-04] MEDS: ASPIRIN EC 81 MG TABEC PO (09:21)
[2024-10-04] MEDS: METOPROLOL SUCCINATE XL 25 MG TABCR 50 MG PO (09:21)
[2024-10-04] MEDS: Lisinopril 2.5 MG TABLET 10 MG PO (09:21)
--- NOTE | 2024-10-04 09:40 | PC.NURSE ---
Report received from JENNIFER Longo Per Hold heparin drip at 10am, RN aware Asked RN to bring patient down at 10am and if that was not possible she said she would let me know so we can bring patient down on time.
[2024-10-04 10:26] LABS: Thyroid Stimulating Hormone 2.75 uIU/mL (0.55-4.78)
--- NOTE | 2024-10-04 11:33 | PD.RESPRO ---
Documentation for date of: 10/04/24 Subjective Subjective Interval history: Summary:39-year-old female patient with past medical history of hypertension, hyperlipidemia, questionable coronary artery disease, presented to the ED due to chest pain that started 12 hours before presentation. Patient reported that the pain was 9 out of 10 on presentation it was centrally located and radiated to the left shoulder. Patient was admitted to rule out coronary artery disease. 10/04/2024, patient was seen and examined at bedside. Reported mild improvement of her chest pain. Patient did not require any pain medications overnight, and did not require any nitroglycerin overnight. However, she still continued to experience chest pain on deep breath. Denied any cough, fever, chills, acid reflux, or skin rash. Patient underwent LHC and it came back negative for any obstruction or blockage in her coronary arteries. Ejection fraction found to be 70%. Family Resource Coordinator recommended to stop aspirin at this time as there is no indication for antiplatelets at this time. Will give the patient today IV fluids 1 bolus and will schedule the patient for chest CTA if tomorrow patient metabolic panel within normal limits. Exam Vital Signs Temp Pulse Resp BP Pulse Ox O2 Del Method 97.7 F 79 20 116/62 98 Aerosol Mask 10/04/24 10:19 10/04/24 10:19 10/04/24 10:19 10/04/24 10:19 10/04/24 10:19 10/04/24 10:19 Narrative Exam GEN: AOx3, obese able to speak full sentences HEENT: NC/AC, oral mucosa moist, neck supple CVS: RRR, S1-S2 present, no murmurs appreciated RESP: CTAB GI: soft,non distended, non tender, NBS MSK: able to move all 4 limbs, no lower extremity edema SKIN: warm and dry PAPER SLITTER: CN II-XII and Sensation grossly intact. Objective Labs 10/04/24 02:00 10/04/24 02:00 Labs: Laboratory Results - last 24 hr 10/03/24 10/03/24 10/03/24 10:59 11:08 13:57 WBC RBC Hgb Hct MCV MCH MCHC RDW Std Deviation Plt Count Neut % (Auto) Lymph % (Auto) Travis % (Auto) Eos % (Auto) Baso % (Auto) Neut # (Auto) Lymph # (Auto) Travis # (Auto) Eos # (Auto) Baso # (Auto) Immature Gran # (Auto) Absolute Nucleated RBC Immature Gran % Nucleated RBC % PT 11.9 INR 1.1 APTT 37.0 H Sodium Potassium Chloride Carbon Dioxide Anion Gap BUN Creatinine Estim Creat Clear Calc eGFR BUN/Creatinine Ratio Glucose Calculated Osmolality Calcium Corrected Calcium Phosphorus Magnesium Total Bilirubin AST ALT Alkaline Phosphatase Troponin I < 0.002 Total Protein Albumin Globulin Albumin/Globulin Ratio TSH Urine Opiates Screen Negative Urine Fentanyl Screen Negative Ur Barbiturates Screen Negative U Amphetamin/Meth Scrn Negative U Benzodiazepines Scrn Negative U Cocaine Metab Screen Negative U Marijuana (THC) Screen Negative 10/03/24 10/04/24 10/04/24 18:11 02:00 02:00 WBC 12.2 H RBC 4.41 Hgb 12.9 Hct 37.2 MCV 84 MCH 29.3 MCHC 34.7 RDW Std Deviation 37.7 Plt Count 349 D Neut % (Auto) 67 Lymph % (Auto) 26 Travis % (Auto) 5 Eos % (Auto) 1 Baso % (Auto) 0 Neut # (Auto) 8.1 H Lymph # (Auto) 3.2 Travis # (Auto) 0.6 Eos # (Auto) 0.2 Baso # (Auto) 0.0 Immature Gran # (Auto) 0.04 H Absolute Nucleated RBC 0.00 Immature Gran % 0 Nucleated RBC % 0 PT 12.1 INR 1.1 APTT 49.5 H D 65.3 H D Sodium 136 Potassium 3.4 D Chloride 102 Carbon Dioxide 25.4 Anion Gap 9 BUN 10 Creatinine 0.6 Estim Creat Clear Calc 133.1 eGFR > 60 BUN/Creatinine Ratio 17 Glucose 107 H Calculated Osmolality 270 L Calcium 9.4 Corrected Calcium 9.4 Phosphorus 4.1 Magnesium 1.9 Total Bilirubin 0.6 AST 10 ALT 11 Alkaline Phosphatase 60 Troponin I Total Protein 7.4 Albumin 4.4 Globulin 3.0 Albumin/Globulin Ratio 1.5 TSH Cancelled 2.75 Urine Opiates Screen Urine Fentanyl Screen Ur Barbiturates Screen U Amphetamin/Meth Scrn U Benzodiazepines Scrn U Cocaine Metab Screen U Marijuana (THC) Screen 10/04/24 07:33 WBC RBC Hgb Hct MCV MCH MCHC RDW Std Deviation Plt Count Neut % (Auto) Lymph % (Auto) Travis % (Auto) Eos % (Auto) Baso % (Auto) Neut # (Auto) Lymph # (Auto) Travis # (Auto) Eos # (Auto) Baso # (Auto) Immature Gran # (Auto) Absolute Nucleated RBC Immature Gran % Nucleated RBC % PT INR APTT 58.4 H Sodium Potassium Chloride Carbon Dioxide Anion Gap BUN Creatinine Estim Creat Clear Calc eGFR BUN/Creatinine Ratio Glucose Calculated Osmolality Calcium Corrected Calcium Phosphorus Magnesium Total Bilirubin AST ALT Alkaline Phosphatase Troponin I Total Protein Albumin Globulin Albumin/Globulin Ratio TSH Urine Opiates Screen Urine Fentanyl Screen Ur Barbiturates Screen U Amphetamin/Meth Scrn U Benzodiazepines Scrn U Cocaine Metab Screen U Marijuana (THC) Screen Quality Measures Quality Measures none Assessment & Plan Assessment Current Active Medications: Generic Name Dose Route Start Last Admin Trade Name Freq PRN Reason Stop Dose Admin Acetaminophen 650 mg 10/03/24 08:37 Acetaminophen 325 Mg Tablet PO 11/02/24 08:36 Q6H PRN Fever >101.5 or mild pain 1-3 Aspirin 81 mg 10/03/24 09:00 10/04/24 09:21 Aspirin Ec 81 Mg Tabec PO 11/02/24 08:59 81 mg QDAY ELYSSA Administration Atorvastatin Calcium 80 mg 10/03/24 21:00 10/03/24 20:14 Atorvastatin Calcium 20 Mg Tablet PO 11/02/24 20:59 80 mg QPM ELYSSA Administration Heparin Sodium/Dextrose 25,000 unit in 250 mls @ 9.998 mls/hr 10/03/24 00:26 10/03/24 23:45 Heparin In D5w Ivpb IV 10/17/24 00:25 14.42 units/kg/hr .Q24H ELYSSA 14 mls/hr Administration Protocol 10.3 UNITS/KG/HR Potassium Chloride 10 meq in 100 mls @ 100 mls/hr 10/04/24 09:45 Kcl Ivpb IV 10/04/24 13:44 Q1H ELYSSA Lisinopril 10 mg 10/03/24 09:00 10/04/24 09:21 Lisinopril 2.5 Mg Tablet PO 11/02/24 08:59 10 mg DAILY ELYSSA Administration Metoprolol Succinate 50 mg 10/03/24 09:00 10/04/24 09:21 Metoprolol Succinate Xl 25 Mg Tabcr PO 11/02/24 08:59 50 mg DAILY ELYSSA Administration Morphine Sulfate 2 mg 10/03/24 08:37 Morphine Sulf Inj 10 Mg/Ml Vial IVP 10/08/24 08:36 Q4HR PRN Pain Scale 7-10- INFORM Nitroglycerin 0.4 mg 10/03/24 17:08 Nitroglycerin 0.4 Mg Subl Btl #25 SL Q5MIN PRN Chest Pain-INFORM Ondansetron HCl 4 mg 10/03/24 08:37 Ondansetron Inj 2 Mg/Ml Inj 2 Ml IV 11/02/24 08:36 Q6H PRN NAUSEA OR VOMITING Protocol Pantoprazole Sodium 40 mg 10/03/24 09:00 10/04/24 09:20 Pantoprazole Inj 40 Mg Vial IVP 11/02/24 08:59 40 mg QDAY ELYSSA Administration Sennosides 1 tab 10/03/24 08:37 Senna Tablet PO 11/02/24 08:36 QDAY PRN constipation Protocol Plan Summary:39-year-old female patient with past medical history of hypertension, hyperlipidemia, questionable coronary artery disease, presented to the ED due to chest pain that started 12 hours before presentation. Patient reported that the pain was 9 out of 10 on presentation it was centrally located and radiated to the left shoulder. Patient was admitted to rule out coronary artery disease. Assessment and plan #Chest pain #Pulmonary embolism rule out #Acute coronary syndrome ruled out #Prinzmetal angina ruled out #Unstable angina ruled out Patient reported that the pain was 9 out of 10 on presentation it was centrally located and radiated to the left shoulder. She mentions that the pain is pressure-like pain it has no relation to activity however she will notice that it increased with stress. She also reported yesterday she noticed whenever she take a deep breath the pain become worse On presentation patient was vitally stable, EKG was negative for any ischemic changes, troponin was negative, BNP negative chest x-ray was also negative for any mediastinal dilatation or pleural effusion. 10/04/2024 coronary angiogram came back negative for any blockage, ejection fraction of 70%., Urine drug screen negative, TSH within normal limits Plan ? Stop aspirin ? Stop heparin ? Chest CT angio tomorrow after checking tomorrow's labs. ? 1 L IV fluid bolus ? Will decrease atorvastatin to her regular home dose to 20 mg ? stop nitroglycerin sublingual ? Continue metoprolol 50 mg daily #History of hypertension Plan ? Switch the patient home medication atenolol to lisinopril ? Switch her home medication atenolol to metoprolol 50 mg p.o. daily #History of hyperlipidemia Latest lipid panel was in July last year showed cholesterol level of 218, LDL of 163, HDL of 46 Plan ? Atorvastatin to 20 mg daily #Obesity Plan ? Weight loss counseling was conducted Hospital Maintenance: FEN: Cardiac diet DVT ppx: Heparin GI ppx: Protonix IV lines: PIV [place]: None Code status: Full code Dispo: Med/tele - Patient's plan and care discussed with my attending, Dr. Zuleika Leonard MD Internal Medicine PGY-2 Attending Provider Attestation/Addendum Patient seen and examined with resident physician Dr. Betancourt. Note reviewed, agree with findings and recommendations. Patient came back from angiogram-normal cardiac cath. Due to pleuritic type of chest pain and high blood pressure on admission will do CTA chest to complete the workup.
--- NOTE | 2024-10-04 13:53 | ESOP_ITS ---
RE: KELSI ROGERS : 1985 DATE OF OPERATION: 10/04/2024 PROCEDURE PERFORMED: 1. Diagnostic left heart cardiac catheterization, selective coronary angiogram, left ventricular angiogram, CPT 00774. 2. Conscious sedation 30 minutes duration. DIAGNOSES: Coronary artery disease, recurrent chest pain, unstable angina pectoris with abnormal stress test. HISTORY AND INDICATIONS: The patient is a 39-year-old lady with a family history of heart disease, hypertension, hypercholesterolemia, recurrence of exceptional chest pain at rest, class IV angina and unstable angina. I went overnight to the hospital with shortness of breath and chest pain. Nitrates are relieving the pain. Coronary angiogram was recommended to assess the patient is a candidate for intervention. DESCRIPTION OF PROCEDURE: The patient was brought to cardiac catheterization laboratory. He was given 2 mg of Versed and 100 mcg of fentanyl for conscious sedation. Right radial approach was taken. Right radial artery was cannulated by micropuncture technique, 6-Kiswahili [place] sheath introduced. Selective right and left coronary angiogram performed by Samara catheter and left heart catheterization, LV angiogram also performed with Samara catheter. The patient tolerated the procedure well. No complications. TR band was applied. Hemostasis was secured. The patient was given radial cocktail after the cannulation. Cardiac catheterization showed following findings. Hemodynamics. Left ventricular pressure 105/10 mmHg, aortic pressure 105/70 mmHg. No gradient across the aortic valve. Left ventricular angiogram showed normal left ventricular wall motion, ejection fraction 70%. Coronary angiogram showed following findings. Right coronary artery large and dominant, appeared normal. PDA, SOCRATES branches are normal. Left coronary system: Left main coronary artery is normal. Left anterior descending artery appears normal. Circumflex artery appears normal. SUMMARY OF FINDINGS: 1. Normal left ventricular function, ejection fraction is 70%. 2. Normal nonobstructive coronary artery disease. RECOMMENDATIONS: The patient was reassured about the absence of significant obstructive coronary artery disease. Prognosis is excellent. The patient can be discharged home today and recommended to stop the aspirin. She does not require any antiplatelet drug therapy or other medication at this time. DT: 13:19:37 TT: 13:52:00 Ref: [id number] - TID: [id number]
--- NOTE | 2024-10-04 14:34 | PC.NURSE ---
Report called to Qing RODRIGUEZ.
[2024-10-04] MEDS: POTASSIUM CHLORIDE 20 mEq TABCR 40 MEQ PO (15:37)
[2024-10-04] MEDS: ACETAMINOPHEN 325 MG TABLET 650 MG PO (15:37)
[2024-10-04] MEDS: SODIUM CHLORIDE 0.9% 1000 ML 1,000 ML 999 ML IV (17:40)
[2024-10-04] MEDS: ATORVASTATIN CALCIUM 20 MG TABLET PO (20:42)
[2024-10-05] VITALS: BP 94/61; PULSE 85; RESP 20; TEMP 36.8; O2SAT 96
[2024-10-05 04:00] VITALS: BP 105/69; PULSE 86; RESP 18; TEMP 37.1; O2SAT 97
[2024-10-05 06:00] VITALS: BMI 41.5
[2024-10-05 06:02] LABS: Basophils % (Auto) 0 % (0-2.5); Eosinophils # (Auto) 0.2 Thou/mm3 (0.0-0.5); Eosinophils % (Auto) 2 % (0-10); Hematocrit 37.7 % (36.0-46.0); Hemoglobin 12.7 g/dL (12.0-16.0); Immature Granulocytes % (Auto) 0 % (0-0); Immature Granulocytes Auto 0.03 Thou/mm3 (0.00-0.00); Lymphocytes # (Auto) 2.2 Thou/mm3 (1.0-4.8); Lymphocytes % (Auto) 23 % (10-50); Mean Corpuscular HGB Conc 33.7 g/dl (31.0-37.0); Mean Corpuscular Hemoglobin 29.1 pg (25.0-35.0); Mean Corpuscular Volume 87 fL (80-100); Monocytes # (Auto) 0.5 Thou/mm3 (0.0-0.8); Monocytes % (Auto) 6 % (0-12); Neutrophils # (Auto) 6.3 Thou/mm3 (1.8-7.7); Neutrophils % (Auto) 69 % (37-80); Nucleated Red Blood Cell % 0 /100 WBC (0); Platelet Count 333 Thou/mm3 (140-440); Red Blood Count 4.36 Miln/mm3 (4.00-5.20); White Blood Count 9.2 Thou/mm3 (3.6-11.0)
[2024-10-05 06:18] LABS: Alanine Aminotransferase 11 U/L (10-49); Albumin, Serum 4.3 gm/dL (3.5-5.0); Albumin/Globulin Ratio 1.5 (1.2-2.2); Alkaline Phosphatase 61 U/L (46-116); Anion Gap 8 (7-16); Aspartate Amino Transferase 10 U/L (0-34); BUN/Creatinine Ratio 18 Ratio (12-20); Bilirubin,Total 0.7 mg/dL (0.3-1.2); Blood Urea Nitrogen 11 mg/dL (9-23); Chloride 105 mMol/L (98-107); Creatinine (Component) 0.6 mg/dL (0.6-1.3); Estimated Creatinine Clearance 136.3 mL/min (>60); Globulin 2.9 gm/dL (2.3-3.5); Glucose 87 mg/dL (74-106); Osmolality,Calculated 272 (275-295); Phosphorous 3.1 mg/dL (2.4-5.1); Potassium 3.8 mMol/L (3.4-5.1); Sodium 137 mMol/L (136-145); Total Protein 7.2 gm/dL (5.7-8.2); eGFR > 60 See Note
[2024-10-05 08:00] VITALS: BP 92/69; PULSE 83; RESP 15; TEMP 36.2; O2SAT 99
--- NOTE | 2024-10-05 08:00 | XR_ITS ---
Examination: CTA chest with intravenous contrast 2-D reconstructions 3-D reconstructions, vascular Date and time of exam: October 05, 2024 0850 hours INDICATIONS: Onset chest pain shortness of breath today, clinical diagnosis pulmonary embolus CTDI: vol (mGy) 20.3 DLP: (mGycm) 639 Technique: Multiple axial sections of the thorax have been obtained. 3 mm slice thickness, from below the hemidiaphragms to above the apices of the lungs. Mediastinal and lung density settings have been obtained. 2-D sagittal and coronal reconstructions. 3-D angiographic renderings, 3-D volume renderings, 3D post processing, vascular maximum intensity projections obtained. Contrast administered is 100 cc Isovue-370. Intravenous Low dose protocols were performed. One or more of the following dose reduction techniques were used; automated exposure control, adjustment of the mA and/or KV according to patient size, use of iterative reconstruction technique. Findings: No thoracic aortic aneurysmal dilatation or dissection Pulmonary artery segments are not enlarged No pulmonary artery emboli No paratracheal tracheobronchial or bronchopulmonary adenopathy Subtle opacity in the right upper lobe, for instance axial image 104 No pulmonary edema No focal liver or splenic lesions No gallstones No pancreatic or adrenal mass No hydronephrosis IMPRESSION: Negative for pulmonary artery emboli Suspicious for early pneumonia right upper lobe
[2024-10-05 10:21] VITALS: PULSE 85; RESP 17; RESP 99
[2024-10-05 10:24] VITALS: BP 118/70; PULSE 83
[2024-10-05] MEDS: METOPROLOL SUCCINATE XL 25 MG TABCR 50 MG PO (10:24)
[2024-10-05] MEDS: PANTOPRAZOLE INJ 40 MG VIAL IVP (10:24)
[2024-10-05] MEDS: Lisinopril 2.5 MG TABLET 10 MG PO (10:24)
--- NOTE | 2024-10-05 11:20 | CHAP ---
Patient was visited by the Spiritual Care Volunteer who prayed for them. (Volunteer was in the hospital from 10:10-11:20).
[2024-10-05 12:00] VITALS: BP 94/59; PULSE 73; RESP 15; TEMP 36.3; O2SAT 97
--- NOTE | 2024-10-05 12:34 | PD.RESPRO ---
Documentation for date of: 10/05/24 Exam Vital Signs Temp Pulse Resp BP Pulse Ox O2 Del Method 97.1 F 83 17 118/70 99 Room Air 10/05/24 08:00 10/05/24 10:24 10/05/24 10:21 10/05/24 10:24 10/05/24 08:00 10/05/24 08:00 Objective Labs 10/05/24 04:32 10/05/24 04:32 Labs: Laboratory Results - last 24 hr 10/05/24 04:32 WBC 9.2 RBC 4.36 Hgb 12.7 Hct 37.7 MCV 87 MCH 29.1 MCHC 33.7 RDW Std Deviation 39.0 Plt Count 333 Neut % (Auto) 69 Lymph % (Auto) 23 [place] % (Auto) 6 Eos % (Auto) 2 Baso % (Auto) 0 Neut # (Auto) 6.3 Lymph # (Auto) 2.2 [place] # (Auto) 0.5 Eos # (Auto) 0.2 Baso # (Auto) 0.0 Immature Gran # (Auto) 0.03 H Absolute Nucleated RBC 0.00 Immature Gran % 0 Nucleated RBC % 0 Sodium 137 Potassium 3.8 Chloride 105 Carbon Dioxide 24.0 Anion Gap 8 BUN 11 Creatinine 0.6 Estim Creat Clear Calc 136.3 eGFR > 60 BUN/Creatinine Ratio 18 Glucose 87 Calculated Osmolality 272 L Calcium 9.0 Corrected Calcium 9.0 Phosphorus 3.1 Magnesium 2.0 Total Bilirubin 0.7 AST 10 ALT 11 Alkaline Phosphatase 61 Total Protein 7.2 Albumin 4.3 Globulin 2.9 Albumin/Globulin Ratio 1.5 Quality Measures Quality Measures none Assessment & Plan Assessment Current Active Medications: Generic Name Dose Route Start Last Admin Trade Name Freq PRN Reason Stop Dose Admin Acetaminophen 650 mg 10/03/24 08:37 10/04/24 15:37 Acetaminophen 325 Mg Tablet PO 11/02/24 08:36 650 mg Q6H PRN Administration Fever >101.5 or mild pain 1-3 Atorvastatin Calcium 20 mg 10/04/24 21:00 10/04/24 20:42 Atorvastatin Calcium 20 Mg Tablet PO 11/03/24 20:59 20 mg QPM ELYSSA Administration Lisinopril 10 mg 10/03/24 09:00 10/05/24 10:24 Lisinopril 2.5 Mg Tablet PO 11/02/24 08:59 10 mg DAILY ELYSSA Administration Metoprolol Succinate 50 mg 10/03/24 09:00 10/05/24 10:24 Metoprolol Succinate Xl 25 Mg Tabcr PO 11/02/24 08:59 50 mg DAILY ELYSSA Administration Morphine Sulfate 2 mg 10/03/24 08:37 Morphine Sulf Inj 10 Mg/Ml Vial IVP 10/08/24 08:36 Q4HR PRN Pain Scale 7-10- INFORM Ondansetron HCl 4 mg 10/03/24 08:37 Ondansetron Inj 2 Mg/Ml Inj 2 Ml IV 11/02/24 08:36 Q6H PRN NAUSEA OR VOMITING Protocol Pantoprazole Sodium 40 mg 10/03/24 09:00 10/05/24 10:24 Pantoprazole Inj 40 Mg Vial IVP 11/02/24 08:59 40 mg QDAY ELYSSA Administration Sennosides 1 tab 10/03/24 08:37 Senna Tablet PO 11/02/24 08:36 QDAY PRN constipation Protocol
--- NOTE | 2024-10-05 13:56 | PD.RESDS ---
Planned Discharge Date 10/05/24 DS: Providers Provider Date of admission: 10/02/24 22:01 Primary care physician: Mariana To MD Admitting Provider: Mariana To MD Attending Provider on Admission: Mariana To MD Consults: 10/02/24 22:04 Consult to Cardiology Routine Comment: chest pain Consulting Provider: Sebastian Aldrich Attending Provider on DC: Puma Mai MD Discharging Provider: Puam Mai MD DS: Diagnosis Problem List Completed Was Problem List Reviewed/Reconciled?: Yes Hospital Course Hospital Course Hospital course: Lia Evans is a 39-year-old female with a past medical history of hypertension, hyperlipidemia, and questionable CAD who presented to the ED for chest pain for 12 hours prior to presentation. Also states that pain was 9 out of 10 in intensity, substernal, with radiation to the left shoulder. Patient was initially admitted for workup of coronary artery disease, especially given that patient had abnormal nuclear stress test outpatient. She underwent left heart cath on 10/04 that did not show any significant coronary artery disease. Ejection fraction found to be 70% and cardiology recommended to stop aspirin at this time with no indication for antiplatelets. CTA chest was negative for pulmonary embolism. No acute overnight events, vitals staable, and patient deemed safe and stable for discharge. Diagnoses during admission: #Chest pain #Pulmonary embolism rule out #Acute coronary syndrome ruled out #Prinzmetal angina ruled out #Unstable angina ruled out #History of hypertension #History of hyperlipidemia #Obesity Discharge instructions: - Follow-up with PCP within 1 week of discharge - No need to follow-up with cardiology - Stop taking aspirin 81 mg - Continue taking all other home medications as prescribed - Return to ED if symptoms worsen or recur Time Spent with Patient Time attestation: Total time spent providing and/or coordinating discharge services: Exam Vital Signs Temp Pulse Resp BP Pulse Ox O2 Del Method 97.3 F 73 15 94/59 L 97 Room Air 10/05/24 12:00 10/05/24 12:00 10/05/24 12:00 10/05/24 12:00 10/05/24 12:10/05/24 12:00 Narrative Exam General: AOx3, obese, no acute distress, able to speak full sentences HEENT: NC/AT, mucous membranes moist, bilateral sclera anicteric Cardiovascular: regular rate and rhythm, S1/S2 present, no murmurs appreciated Pulmonary: clear to auscultation bilaterally, no rales/rhonchi/wheezes Abdominal: soft, non-tender, non-distended, no rebound/guarding, normal bowel sounds present Musculoskeletal: normal ROM, no peripheral edema Skin: warm and dry, intact, no rashes Discharge Plan Plan Patient Disposition: HOME (Self Care) Patient condition on transfer: Stable Care Plan Goals: - Follow-up with PCP within 1 week of discharge - No need to follow-up with cardiology - Stop taking aspirin 81 mg - Continue taking all other home medications as prescribed - Return to ED if symptoms worsen or recur Prescriptions/Referrals Prescriptions/Med Rec: New metoprolol succinate 50 mg tablet extended release 24 hr 50 mg PO QDAY Qty: 30 0RF lisinopril 10 mg tablet 10 mg PO QDAY Qty: 30 0RF Continued atorvastatin 20 mg tablet 20 mg PO QPM Patient Comments: TAKE 1 TABLET BY MOUTH EVERYDAY AT BEDTIME aspirin 81 mg Capsule 81 mg PO QDAY Discontinued atenolol 50 mg tablet 50 mg PO QDAY Patient Comments: TAKE 1 TABLET BY MOUTH TWICE A DAY Referrals: Mariana To MD [Primary Care Provider] - Patient/Caregiver Discharge Instructions Discharge Activity: activity as tolerated Education Materials: Low-Fat Cooking Tips, Cardiac Catheterization Dc, Preventing Surgical Site Infections, Procedural Sedation, [facility] Cath Transradial, [facility] [place] Instructions- Namibian Print Language: Namibian Activity Restrictions/Additional Instructions: - Follow-up with PCP within 1 week of discharge - No need to follow-up with cardiology - Stop taking aspirin 81 mg - Continue taking all other home medications as prescribed - Return to ED if symptoms worsen or recu Please call to schedule a follow up appointment with your primary care doctor 1-2 weeks after discharge so he/she can make further recommendations about your overall health condition. DO NOT drive or operate any motor vehicle, heavy equipment, or machinery in the next 24 hours. DO NOT perform any activity that requires you to be fully alert in the next 24 hours. DO NOT sign any documentation in the next 24 hours that requires a full understanding of what you are signing for. Do not perform any strenuous physical activity in the next 5 days. Do not bend or twist your wrist for the next 3 days. Do no lift anything that weights equal or over 5 pounds with your right Arm/Hand within the next 3 days. Perform light activity only with your right Hand/Arm for the next 3 days. Do not strain your bowel. If you experience constipation, drink plenty of fluids, especially water, if not contraindicated by your doctor. In addition, add foods rich in fiber. Should you experience constipation, talk to your doctor about other options that might help you alleviate it. Keep your blood pressure under control. If you take blood pressure medication, continue to take it as prescribed, if not contraindicated by your doctor, doing so; helps to prevent post-complications such as bleeding. Take your new/previous medication as directed by the doctor. If there is no changes, continue to take medication at your usual time. After 3 days, start increasing the level of physical activity with your Hand/Arm gradually in the following 5 days. Look out for signs of infection such as tenderness, redness, or drainage to your right wrist. If any, report them to your primary care doctor immediately. You will go home with your right wrist covered by two different dressings, a clear dressing and a Coban wrap. The Coban wrap (Color Dressing on Top) must be removed in 24 hours after it was placed. The clear dressing (Dressing that is attached to your skin) Must be removed in 48 hours after it was placed. If you decide to shower or to take a bath, NOT RECOMMENDED IN THE FIRST 24 HOURS AFTER THE PROCEDURE; please keep dressing clean and dry by covering it. Or, if you prefer, take a sponge bath instead. After removing your dressing, you can gently clean your surgical site with soap and water and pad dry it. DO NOT rub site to prevent complication such as bleeding. DO NOT apply any lotions, creams, or powders on the surgical site until your skin completely heals (5 days or more). Should you experience any type of complications such as pain, change in color, change in temperature, a bruise that increases in size and color, a lump (Hard or soft) that develops and increases in size, numbness, or loss of sensation in your Right arm/Wrist, Chest pain, or shortness of breath; PLEASE GO TO THE NEAREST EMERGENCY ROOM IMMEDIATELY. Should you have any other questions or concerns on regards today?s procedure; feel free to contact us to [employer] . Please call to schedule a follow up appointment with your primary care doctor 1-2 weeks after discharge so he/she can make further recommendations about your overall health condition. It is important to follow a heart healthy diet. Avoid saturated fat foods and food and drinks with added sugar. Eat a well-balanced diet with plenty of fresh fruits, vegetables and whole grains if not contraindicated by your primary care provider. Choose water to hydrate yourself over any other type of drinks. Talk to your primary doctor for further advice for a diet that fits your nutritional body requirements and for an adequate exercise program to keep and improve your overall health condition. ALWAYS FOLLOW/CONSIDER YOUR PRIMARY CARE DOCTOR'S MEDICAL ADVICE BEFORE MAKING ANY CHANGES TO YOUR DIET OR LEVEL OF ACTIVITY. Should you have any other questions or concerns on regards today?s procedure; feel free to contact us to [employer] . Stand Alone Forms: Rissa Award Info., Patient Portal Info Letter Discharge Order Discharge Orders: Discharge (Routine); Ordered 10/05/24 Ordered By: Mariana To Quality Discharge Quality Measures VTE prophylaxis MD Attestestation MD Attestation Patient seen and examined with resident physician Dr. Rubio. Note reviewed, agree with findings and recommendations. Patient came back from angiogram-normal cardiac cath. Due to pleuritic type of chest pain and high blood pressure on admission-ordered CTA chest which came back negative. She is going to be discharged on metoprolol, lisinopril. Follow-up with Dr. Anderson and myself in 1 to 2 weeks.
--- NOTE | 2024-10-05 15:40 | PC.NURSE ---
remove coband per order. tegaderm to site, no bleeding noted
== END 2024-10-05 15:48 | disposition home or self-care (01) | DRG 287 ==
LOC: SERX 21:21 → SERHOLD 22:18 → S3NX 10-03 00:43
PROVIDERS: Internal Medicine Cardiovascular Disease; Nurse Practitioner Primary Care; Student in an Organized Health Care Education/Training Program; Admitting Provider Internal Medicine; Emergency Provider Emergency Medicine; PCP Internal Medicine; Visit Provider Internal Medicine
DX: R07.89 Other chest pain (principal); Z68.41 Body mass index [BMI] 40.0-44.9, adult; K21.9 Gastro-esophageal reflux disease without esophagitis; I10 Essential (primary) hypertension; E78.00 Pure hypercholesterolemia, unspecified; E66.9 Obesity, unspecified; Z87.891 Personal history of nicotine dependence; Z82.49 Family history of ischemic heart disease and other diseases of the circulatory system; Z79.82 Long term (current) use of aspirin; Z79.899 Other long term (current) drug therapy
CPT/HCPCS: 36415; 71046; 71275; 80053; 80061; 80307; 83735; 83880; 84100; 84443; 84484; 85025; 85379; 85610; 85730; 87811; 93005; 93225; 94762; 99152; 99285; A4649; C1769; C1887; C1894; J0171; J0461; J1643; J1644; J2250; J2310; J2371; J2470; J3010; J3490; J7030; Q9967; A9270; J2305

== ENCOUNTER → 2024-11-23 | Outpatient (CLI) | payer BC, SELFPAY ==
[2024-11-23 08:50] LABS: Alanine Aminotransferase 20 U/L (10-49); Albumin, Serum 4.6 gm/dL (3.5-5.0); Albumin/Globulin Ratio 1.4 (1.2-2.2); Alkaline Phosphatase 87 U/L (46-116); Anion Gap 9 (7-16); Aspartate Amino Transferase 13 U/L (0-34); BUN/Creatinine Ratio 14 Ratio (12-20); Bilirubin,Total 0.6 mg/dL (0.3-1.2); Blood Urea Nitrogen 10 mg/dL (9-23); Calcium 9.7 mg/dL (8.3-10.6); Calcium (Corrected) 9.7 mg/dL (8.5-10.1); Carbon Dioxide 26.7 mMol/L (20.0-31.0); Cardiac Risk Estimate 2.7 RATIO (3.7-5.6); Chloride 102 mMol/L (98-107); Cholesterol 139 mg/dL (132-200); Creatinine (Component) 0.7 mg/dL (0.6-1.3); Globulin 3.2 gm/dL (2.3-3.5); Glucose 106 mg/dL (74-106); HDL Cholesterol 52 mg/dL (40-60); LDL Cholesterol,Calculated 76 mg/dL (0-130); Osmolality,Calculated 274 (275-295); Potassium 4.4 mMol/L (3.4-5.1); Sodium 138 mMol/L (136-145); Total Protein 7.8 gm/dL (5.7-8.2); Triglycerides 55 mg/dL (30-150); eGFR > 60 See Note
== END | disposition home or self-care (01) ==
LOC: COPL 07:50
PROVIDERS: PCP Internal Medicine; Referring Provider Internal Medicine; Visit Provider Internal Medicine
DX: E78.5 Hyperlipidemia, unspecified (principal)
CPT/HCPCS: 36415; 80053; 80061

== ENCOUNTER 2024-12-26 14:23 | Emergency (ER) | payer BC, SELFPAY ==
[2024-12-26 14:45] VITALS: BP 123/80; PULSE 88; RESP 18; TEMP 37.1; O2SAT 97
--- NOTE | 2024-12-26 14:53 | XR_ITS ---
Examination: PA lateral chest 2 views TECHNIQUE: Upright PA lateral chest 2 views Exam date and time: December 26, 2024 1549 hours INDICATIONS: Chest pain difficulty breathing beginning 3 days ago. FINDINGS: Normal heart size. Lungs are clear. The osseous structures are intact IMPRESSION: No active disease
--- NOTE | 2024-12-26 14:56 | PD.EDURI ---
Upper Respiratory Inf. RME/HPI General Chief Complaint: Chest Pain Stated Complaint: CHEST PAIN W/DEEP BREATH Time Seen by Provider: 12/26/24 14:31 Source: patient Arrival date/time: 12/26/24 14:23 39-year-old female with no known medical history presents to the emergency room with a chief complaint of pain when taking deep breaths. Patient states she also has a cough congestion and she has been feeling like this for the last day. Mode of arrival: ambulatory Limitations: no limitations Related Data Home Medications ?Medication ?Instructions ?Recorded ?Confirmed aspirin 81 mg capsule 81 mg PO QDAY 10/02/24 10/02/24 atorvastatin 20 mg tablet 20 mg PO QPM 10/02/24 10/02/24 Previous Rx's ?Medication ?Instructions ?Recorded lisinopril 10 mg tablet 10 mg PO QDAY #30 tabs 10/05/24 metoprolol succinate 50 mg 50 mg PO QDAY #30 tabs 10/05/24 tablet,extended release 24 hr Allergies Allergy/AdvReac Type Severity Reaction Status Date / Time cephalexin Allergy Severe Hives Verified 12/26/24 14:26 latex Allergy Severe RASH Verified 12/26/24 14:26 nitrofurantoin Allergy Severe RASH Verified 12/26/24 14:26 HAPPENS DAYS AFTER NOT IMMEDIATELY sumatriptan Allergy Severe PALPITATIONS, Verified 12/26/24 14:26 CXP, AND SWEATY Review of Systems Review of Systems Systems Reviewed: All systems reviewed, normal except as documented Constitutional Constitutional: Reports system reviewed and no additional complaints, except as documented, Denies fatigue, Denies fever(s), Denies headache(s) and Denies weakness Eyes Eyes: Reports system reviewed and no additional complaints, except as documented, Denies blurry vision and Denies change in vision ENT Ears, Nose, Mouth, and Throat: Reports system reviewed and no additional complaints, except as documented, Denies otalgia, Denies headache(s), Denies nasal congestion, Denies throat swelling and Denies vertigo Cardiovascular Cardiovascular: Reports system reviewed and no additional complaints, except as documented, Denies dyspnea and Denies dyspnea on exertion Respiratory Respiratory: Reports system reviewed and no additional complaints, except as documented, Reports chest congestion, Reports cough, Denies dyspnea, Denies dyspnea on exertion, Reports pain on inspiration and Denies wheezing Gastrointestinal Gastrointestinal: Reports system reviewed and no additional complaints, except as documented, Denies abdominal pain, Denies cramping, Denies nausea and Denies vomiting Genitourinary Genitourinary: Reports system reviewed and no additional complaints, except as documented Musculoskeletal Musculoskeletal: Reports system reviewed and no additional complaints, except as documented and Denies back pain Integumentary/Breasts Skin/Breast: Reports system reviewed and no additional complaints, except as documented and Denies wounds Neurologic Neurologic: Reports system reviewed and no additional complaints, except as documented, Denies confusion, Denies headache(s), Denies lack of coordination, Denies vertigo and Denies weakness Psychiatric Psychiatric: Reports system reviewed and no additional complaints, except as documented, Denies anxiety, Denies confusion, Denies depression, Denies paranoia, Denies suicidal ideation and Denies tactile hallucinations Endocrine Endocrine: Reports system reviewed and no additional complaints, except as documented and Denies fatigue Hematologic/Lymphatic Hematologic/Lymphatic: Reports system reviewed and no additional complaints, except as documented and Denies lymphadenopathy Allergic/Immunologic Allergic/Immunologic: Reports system reviewed and no additional complaints, except as documented, Denies throat swelling, Denies urticaria and Denies wheezing Past Medical History Past Medical History NEUROLOGIC: Positive Neurological Disorders and Migraine; Negative Seizures CARDIAC: Positive Cardiac Disorders (angina), Cardiac Arrhythmia (Tachycardia), Angina and Hypercholesterolemia; Negative Congestive Heart Failure RESPIRATORY: Positive Bronchitis; Negative Chronic Obstructive Pulmonary Disease (COPD) or Asthma GASTROINTESTINAL: Positive Gastrointestinal Disorders, Gastroesophageal Reflux Disease and Obesity GENITOURINARY: Negative Genitourinary Disorders or Renal Disease REPRODUCTIVE: Positive Previous Pregnancies MUSCULOSKELETAL: Negative Musculoskeletal Disorders ENDOCRINE: Negative Endocrine Disorders, Diabetes Mellitus Type 1 or Diabetes Mellitus Type 2 HEMATOLOGIC: Negative Blood Disorders or Sickle Cell Disease OTHER HISTORY: Negative Hospitalization, Autoimmune Disease, Falls, Blood Transfusions, Anesthesia Reactions or Cancer Family History FAMILY HISTORY: Positive Family Cardiac Disorders; Negative Family Anesthesia Reaction Surgical History SURGICAL: Positive Tubal Ligation and Section Social History SMOKING STATUS: Former smoker SECOND HAND EXPOSURE: No SUBSTANCE USE: does not use ED Exam General Limitations: Present no limitations General appearance: Present alert and in no apparent distress Head Head exam: Present atraumatic Eye Eye exam: Present normal appearance, PERRL and EOMI ENT ENT exam: Present normal exam, normal oropharynx and mucous membranes moist Neck Neck exam: Present normal inspection, full ROM and trachea midline Chest Chest inspection: Present normal inspection and symmetric chest wall rise Respiratory Respiratory exam: Present normal lung sounds bilaterally; Absent respiratory distress, wheezes, stridor, accessory muscle use or prolonged expiratory phase Cardiovascular Cardiovascular exam: Present regular rate, normal rhythm and normal heart sounds; Absent tachycardia Abdominal Exam Abdominal exam: Present soft and normal bowel sounds Extremities Exam Extremities exam: Present normal inspection and full ROM Back Exam Back exam: Present normal inspection and full ROM Neurological Exam Neurological exam: Present alert, oriented X3 and CN II-XII intact Psychiatric Psychiatric exam: Present normal affect and normal mood Skin Skin exam: Present warm, dry, intact and normal color Course Quality Measures none Orders Category Date Time Status Bedside COVID-19 Antigen Test NOW Care 12/26/24 14:53 Active Bedside Influenza A&B Antigen Test NOW Care 12/26/24 14:53 Completed XR chest 2V Stat Exams 12/26/24 14:53 Completed Vital Signs Vital signs: Vital Signs Temperature 98.8 F 12/26/24 14:45 Pulse Rate 88 12/26/24 14:45 Respiratory Rate 18 12/26/24 14:45 Blood Pressure 123/80 12/26/24 14:45 Pulse Oximetry (%) 97 12/26/24 14:45 Oxygen Delivery Method Room Air 12/26/24 14:45 O2 saturation 97% within normal limits Upper Respiratory Infection MDM Narrative MDM Narrative:: 39-year-old female with no known medical history presents to the emergency room with a chief complaint of pain when taking deep breaths. Patient states she also has a cough congestion and she has been feeling like this for the last day. Patient is hemodynamically stable and in no apparent distress. She is afebrile not tachycardic not tachypneic and her O2 saturation is 97% on room air. Patient denies any chest pain or palpitations. Patient states her pain occurs when she takes a deep breath. Chest x-ray was completed and was negative for any pneumonic infiltrates. COVID-19 and influenza were both negative Patient was discharged and educated to follow-up with primary care provider in the next 24 to 48 hours and return to the emergency room for any evidence of worsening signs or symptoms Patient data External records reviewed:: [facility] previous records Clinical information provided by:: patient Social determinants that could affect healthcare access:: none Patient has the following chronic illnesses:: No chronic illness How is presenting disease/condition affected by chronic disease/condition?: no chronic disease Evaluation data The following diagnostics were reviewed and interpreted by me:: lab results and radiology exam(s) Lab and/or radiology exams considered but not ordered:: Labs and radiology exams considered and ordered Interpretation Summary: Chest [id number]: Normal heart size. Lungs are clear. The osseous structures are intact IMPRESSION: No active disease Medications / Prescriptions Medications or Prescriptions considered but not ordered:: No medication given Medication administrations:: No medication given Consultations Consultation(s) initiated? (list below): No Diagnosis Upper Respiratory Differential Diagnosis: upper respiratory infection, sinusitis, viral infection, influenza and pharyngitis Most likely diagnosis given after review of the tests above:: Upper respiratory infection Admission Indicated Admission indicated?: not indicated Admission Request Was there a request for admission?: No Disposition Plan Disposition Plan: Discharge Discharge Attestation Discharge Attestation: The patient and all family members were given an opportunity to ask questions and understood the discharge instructions. Discharge instructions specifically effects, indications for sooner follow up or return to the emergency department, and the expected course of current diagnosis. Patient condition: Stable Discharge Plan Plan Patient Disposition: HOME (Self Care) Disposition Comment: Stable Prescriptions/Referrals Prescriptions/Med Rec: No Action atorvastatin 20 mg tablet 20 mg PO QPM Patient Comments: TAKE 1 TABLET BY MOUTH EVERYDAY AT BEDTIME aspirin 81 mg Capsule 81 mg PO QDAY metoprolol succinate 50 mg tablet extended release 24 hr 50 mg PO QDAY Qty: 30 0RF lisinopril 10 mg tablet 10 mg PO QDAY Qty: 30 0RF Referrals: Mariana To MD [Primary Care Provider] - In 1 week Problem List Clinical Impression: Upper respiratory infection, viral Patient/Caregiver Discharge Instructions Education Materials: ED URI, Viral, No Abx (Adult) Additional Instructions: Please follow-up with your primary care provider in the next 24 to 48 hours. Your chest x-ray was negative for any pneumonia Your COVID-19 and influenza test were both negative For any evidence of worsening signs or symptoms or if you begin to develop chest pain please return to the emergency room immediately Print Language: Bel[place]ian Stand Alone Forms: Rissa Award Info., Patient Portal Info Letter PA/EMELIA Supervising Physician PA/EMELIA Supervising Physician: Dr Herrera
== END 2024-12-26 17:19 | disposition home or self-care (01) ==
PROVIDERS: Emergency Provider Emergency Medicine; PCP Internal Medicine
DX: J06.9 Acute upper respiratory infection, unspecified (principal)
CPT/HCPCS: 71046; 87400; 87811; 99283

== ENCOUNTER → 2025-03-29 | Outpatient (CLI) | payer BC, SELFPAY ==
[2025-03-29 08:00] LABS: Collection Type, Urine Clean Catch
[2025-03-29 08:35] LABS: Bilirubin,Urine Negative (Negative); Blood,Urine 1+ (Negative); Clarity,Urine Clear (Clear/Hazy); Color,Urine Lt-Yellow (Lt Yel-Yel); Glucose, Urine Negative (Negative); Ketones,Urine Negative (Negative); Leukocyte Esterase,Urine Negative (Negative); Nitrite,Urine Negative (Negative); PH,Urine 6.0 (5.0-7.0); Protein,Urine Negative (Neg - Trace); RBC,Urine 3 /hpf (0-3); Specific Gravity,Urine 1.024 (1.001-1.035); Squamous Epithelial Cell,Urine 2 /hpf (0-5); Urobilinogen,Urine Negative mg/dL (0.0-1.0); WBC,Urine < 1 /hpf (0-5)
[2025-03-29 08:37] LABS: Basophils # (Auto) 0.0 Thou/mm3 (0.0-0.2); Basophils % (Auto) 1 % (0-2.5); Eosinophils # (Auto) 0.2 Thou/mm3 (0.0-0.5); Eosinophils % (Auto) 2 % (0-10); Hematocrit 41.3 % (36.0-46.0); Hemoglobin 14.2 g/dL (12.0-16.0); Immature Granulocytes Auto 0.02 Thou/mm3 (0.00-0.00); Lymphocytes # (Auto) 1.7 Thou/mm3 (1.0-4.8); Lymphocytes % (Auto) 22 % (10-50); Mean Corpuscular HGB Conc 34.4 g/dl (31.0-37.0); Mean Corpuscular Hemoglobin 29.4 pg (25.0-35.0); Mean Corpuscular Volume 86 fL (80-100); Monocytes # (Auto) 0.5 Thou/mm3 (0.0-0.8); Monocytes % (Auto) 6 % (0-12); Neutrophils # (Auto) 5.5 Thou/mm3 (1.8-7.7); Neutrophils % (Auto) 69 % (37-80); Nucleated Red Blood Cell # 0.00 Thou/mm3 (0.00-0.00); Nucleated Red Blood Cell % 0 /100 WBC (0); Platelet Count 412 Thou/mm3 (140-440); RDW Standard Deviation 40.2 fL (36.4-46.3); Red Blood Count 4.83 Miln/mm3 (4.00-5.20); White Blood Count 7.9 Thou/mm3 (3.6-11.0)
[2025-03-29 08:44] LABS: Glucose Estimated Average 100 mg/dL (80-131); Hemoglobin A1C 5.1 % Hgb (4.8-6.0)
[2025-03-29 08:54] LABS: Alanine Aminotransferase 22 U/L (10-49); Albumin, Serum 4.6 gm/dL (3.5-5.0); Albumin/Globulin Ratio 1.4 (1.2-2.2); Alkaline Phosphatase 84 U/L (46-116); Anion Gap 9 (7-16); Aspartate Amino Transferase 22 U/L (0-34); BUN/Creatinine Ratio 14 Ratio (12-20); Bilirubin,Total 0.9 mg/dL (0.3-1.2); Blood Urea Nitrogen 11 mg/dL (9-23); Calcium 9.3 mg/dL (8.3-10.6); Calcium (Corrected) 9.3 mg/dL (8.5-10.1); Carbon Dioxide 27.2 mMol/L (20.0-31.0); Cardiac Risk Estimate 3.0 RATIO (3.7-5.6); Chloride 103 mMol/L (98-107); Cholesterol 151 mg/dL (132-200); Creatinine (Component) 0.8 mg/dL (0.6-1.3); Globulin 3.3 gm/dL (2.3-3.5); Glucose 107 mg/dL (74-106); HDL Cholesterol 51 mg/dL (40-60); LDL Cholesterol,Calculated 74 mg/dL (0-130); Osmolality,Calculated 276 (275-295); Potassium 4.5 mMol/L (3.4-5.1); Sodium 139 mMol/L (136-145); Total Protein 7.9 gm/dL (5.7-8.2); Triglycerides 130 mg/dL (30-150); eGFR > 60 See Note
== END | disposition home or self-care (01) ==
LOC: COPL 07:14
PROVIDERS: PCP Internal Medicine; Referring Provider Internal Medicine; Visit Provider Internal Medicine
DX: E78.5 Hyperlipidemia, unspecified (principal); I10 Essential (primary) hypertension
CPT/HCPCS: 36415; 80053; 80061; 81001; 83036; 85025

== ENCOUNTER → 2025-04-05 | Outpatient (CLI) | payer BC, SELFPAY ==
--- NOTE | 2025-04-05 13:30 | XR_ITS ---
Examination: Breast ultrasound complete, bilateral Date and time of exam: April 05, 2025 1329 hours INDICATIONS: Intermittent left breast pain beginning 3 years ago, history 12:00 nodule biopsy left breast negative, 11:00 nodule 17 x 9 mm on breast sonogram September 27, 2024 Technique: Real-time grayscale ultrasonographic imaging bilateral breasts, including all 4 quadrants as well as nipple retroareolar and axillary regions. Findings: Sonographic images right breast Benign cysts, the largest in the 12:00 position 8 x 6 mm No solid nodules Sonographic images left breast 12:00 nodule with biopsy marker 5 x 6 mm 9:00 cyst 5 x 3 mm IMPRESSION: BI-RADS Category 2: Benign findings
--- NOTE | 2025-04-05 14:30 | XR_ITS ---
Examination: Screening digital mammography, bilateral Computer aided detection 3-D breast Tomosynthesis, bilateral Date and time of exam: April 05, 2025 1347 hours Compared to mammograms dating to July 21, 2016 Indication: Screening Technique: Nonmagnified MLO, CC views of the breasts to been obtained, reconstructed from 3-D Tomosynthesis images. R2 computer aided detection program utilized for evaluation of suspicious masses and/or abnormal calcifications. 3-D Tomosynthesis images obtained. Findings: Scattered areas of fibroglandular density. Stable nodule with breast biopsy marker inner upper left breast Benign calcifications No interval suspicious masses Impression: BI-RADS category II: Benign Findings. Recommend 1 year follow-up mammogram.
== END | disposition home or self-care (01) ==
LOC: CDIM 13:13
PROVIDERS: PCP Internal Medicine; Referring Provider Internal Medicine; Visit Provider Internal Medicine
DX: Z12.31 Encounter for screening mammogram for malignant neoplasm of breast (principal); R92.323 Mammographic fibroglandular density, bilateral breasts; R92.1 Mammographic calcification found on diagnostic imaging of breast
CPT/HCPCS: 76641; 77063; 77067

== ENCOUNTER → 2025-08-02 | Outpatient (CLI) | payer BC, SELFPAY ==
[2025-08-02 10:13] LABS: Collection Type, Urine Clean Catch
[2025-08-02 10:26] LABS: Basophils # (Auto) 0.0 Thou/mm3 (0.0-0.2); Basophils % (Auto) 0 % (0-2.5); Eosinophils # (Auto) 0.1 Thou/mm3 (0.0-0.5); Eosinophils % (Auto) 1 % (0-10); Hematocrit 42.9 % (36.0-46.0); Hemoglobin 14.6 g/dL (12.0-16.0); Immature Granulocytes Auto 0.02 Thou/mm3 (0.00-0.00); Lymphocytes # (Auto) 1.8 Thou/mm3 (1.0-4.8); Lymphocytes % (Auto) 25 % (10-50); Mean Corpuscular HGB Conc 34.0 g/dl (31.0-37.0); Mean Corpuscular Hemoglobin 30.1 pg (25.0-35.0); Mean Corpuscular Volume 89 fL (80-100); Monocytes # (Auto) 0.5 Thou/mm3 (0.0-0.8); Monocytes % (Auto) 6 % (0-12); Neutrophils # (Auto) 5.0 Thou/mm3 (1.8-7.7); Neutrophils % (Auto) 67 % (37-80); Nucleated Red Blood Cell # 0.00 Thou/mm3 (0.00-0.00); Nucleated Red Blood Cell % 0 /100 WBC (0); Platelet Count 445 Thou/mm3 (140-440); RDW Standard Deviation 41.4 fL (36.4-46.3); Red Blood Count 4.85 Miln/mm3 (4.00-5.20); White Blood Count 7.4 Thou/mm3 (3.6-11.0)
[2025-08-02 10:38] LABS: Bacteria,Urine Rare; Bilirubin,Urine Negative (Negative); Blood,Urine Negative (Negative); Clarity,Urine Clear (Clear/Hazy); Color,Urine Colorless (Lt Yel-Yel); Glucose, Urine Negative (Negative); Ketones,Urine Negative (Negative); Leukocyte Esterase,Urine Negative (Negative); Nitrite,Urine Negative (Negative); PH,Urine 7.0 (5.0-7.0); Protein,Urine Negative (Neg - Trace); RBC,Urine 2 /hpf (0-3); Specific Gravity,Urine 1.010 (1.001-1.035); Squamous Epithelial Cell,Urine < 1 /hpf (0-5); Urobilinogen,Urine Negative mg/dL (0.0-1.0); WBC,Urine 1 /hpf (0-5)
[2025-08-02 10:38] LABS: Glucose Estimated Average 105 mg/dL (80-131); Hemoglobin A1C 5.3 % Hgb (4.8-6.0)
[2025-08-02 10:44] LABS: Alanine Aminotransferase 22 U/L (10-49); Albumin, Serum 4.8 gm/dL (3.5-5.0); Albumin/Globulin Ratio 1.7 (1.2-2.2); Alkaline Phosphatase 88 U/L (46-116); Anion Gap 10 (7-16); Aspartate Amino Transferase 20 U/L (0-34); BUN/Creatinine Ratio 13 Ratio (12-20); Bilirubin,Total 0.7 mg/dL (0.3-1.2); Blood Urea Nitrogen 8 mg/dL (9-23); Calcium 9.3 mg/dL (8.3-10.6); Calcium (Corrected) 9.3 mg/dL (8.5-10.1); Carbon Dioxide 29.5 mMol/L (20.0-31.0); Cardiac Risk Estimate 2.6 RATIO (3.7-5.6); Chloride 101 mMol/L (98-107); Cholesterol 173 mg/dL (132-200); Creatinine (Component) 0.6 mg/dL (0.6-1.3); Free T4 (Free Thyroxine) 1.48 ng/dL (0.89-1.76); Globulin 2.8 gm/dL (2.3-3.5); Glucose 106 mg/dL (74-106); HDL Cholesterol 66 mg/dL (40-60); LDL Cholesterol,Calculated 87 mg/dL (0-130); Osmolality,Calculated 277 (275-295); Potassium 4.1 mMol/L (3.4-5.1); Sodium 140 mMol/L (136-145); Thyroid Stimulating Hormone 1.01 uIU/mL (0.55-4.78); Total Protein 7.6 gm/dL (5.7-8.2); Triglycerides 98 mg/dL (30-150); Uric Acid 5.0 mg/dL (3.1-7.8); eGFR > 60 See Note
[2025-08-02 10:49] LABS: Vitamin B12 714 pg/mL (211-911); Vitamin D 25 Hydroxy Total 31.5 ng/mL (7.3-40.2)
[2025-08-12 07:00] LABS: Cortisol,total,LC/MS/MS* 6.3 mcg/dL
== END | disposition home or self-care (01) ==
LOC: COPL 09:00
PROVIDERS: PCP Internal Medicine; Referring Provider Internal Medicine; Visit Provider Internal Medicine
DX: Z00.00 Encounter for general adult medical examination without abnormal findings (principal); I10 Essential (primary) hypertension; E78.5 Hyperlipidemia, unspecified
CPT/HCPCS: 36415; 80053; 80061; 81001; 82306; 82533; 82607; 83036; 84439; 84443; 84550; 85025

== ENCOUNTER → 2025-08-30 | Outpatient (CLI) | payer BC, SELFPAY ==
[2025-08-30 12:18] LABS: Follicle Stimulating Hormone 6.68 mIU/mL (See Note)
== END | disposition home or self-care (01) ==
LOC: COPL 11:32
PROVIDERS: PCP Internal Medicine; Referring Provider Obstetrics & Gynecology; Visit Provider Obstetrics & Gynecology
DX: N95.1 Menopausal and female climacteric states (principal)
CPT/HCPCS: 36415; 83001